=== PATIENT | female | born 1980 | race African-American/Black ===

== ENCOUNTER 2021-09-30 12:06 | Emergency (ER) | payer OTHER, SELFPAY ==
--- NOTE | ~2021-09-30 | CT_ITS ---
EXAMINATION: CT brain wo con EXAM DATE: 09/30/2021 21:36 INDICATION: Right-sided headache. Dizziness. Weakness. TECHNIQUE: Spiral CT of the head was performed without contrast. Axial, coronal and sagittal images were reviewed. The dose-length product (DLP) for this examination was 605.33 mGy-cm. The exposure w as tailored according to patient size, and iterative reconstruction (ASIR) was used as additional dos e reduction technique. There is no prior study for comparison. FINDINGS: There is no acute intraparenchymal hemorrhage. No evidence of intraparenchymal brain mass lesion. No evidence of acute infarction. There is no mass effect or midline shift. The ventricles are normal in size. There are no extra-axial collections. There are no acute calvarial fractures. T he orbits are unremarkable. Soft tissue is unremarkable. The visualized sinuses and mastoid air adriel ls are well aerated. IMPRESSION: 1. Unremarkable head CT examination. Reviewed, dictated and finalized at location A. MOTIVE TIRE TECHNICIAN
[2021-09-30 12:09] VITALS: BP 122/72; PULSE 87; RESP 18; TEMP 36.5; O2SAT 100
[2021-09-30 15:52] VITALS: BP 119/86; PULSE 94; RESP 18; TEMP 37.3; O2SAT 100
[2021-09-30 19:15] VITALS: BP 149/91; PULSE 87; RESP 18; O2SAT 98
--- NOTE | 2021-09-30 20:05 | ED.FEMALEGU ---
HPI - Female Genitourinary General Chief complaint: Vaginal Bleeding Stated complaint: vaginal bleeding/clots Time Seen by Provider: 09/30/21 19:49 Source: patient Mode of arrival: ambulatory Limitations: no limitations History of Present Illness HPI Narrative: Patient is 41 years old -[place] female presented to the ED with vaginal bleeding started 6 days ago with a lot of blood clots. Associated with cramps of the lower abdomen and lower back. Last menstrual. September 19. Patient is 5, para 3, 2. History of rheumatoid arthritis, hypertension, depression, uterine fibroid tumor. Patient doesn't smoke or drink or uses marijuana. Patient is not vaccinated for COVID. Patient denies antiplatelet or anticoagulant medication Related Data Allergies Allergy/AdvReac Type Severity Reaction Status Date / Time ibuprofen Allergy Severe SWELLING Verified 11/06/15 10:37 Chocolate Allergy Severe ITCHING Uncoded 11/06/15 10:37 Review of Systems Review of Systems: CONSTITUTIONAL: Denies fever, chills, or sweats. EYES: Denies visual changes, redness, or discharge. ENT: Denies rhinorrhea, congestion, sore throat, or otalgia. CARDIOVASCULAR: Denies chest pain, palpitations, or edema. RESPIRATORY: Denies cough or dyspnea. GASTROINTESTINAL: Denies abdominal pain, nausea, vomiting, or diarrhea. GENITOURINARY: Denies dysuria or hematuria. SKIN: Denies rash or itching. MUSCULOSKELETAL: Denies back pain, joint pain, or myalgia. NEUROLOGIC: Denies headache, numbness, or weakness. PSYCHIATRIC: Denies anxiety or depression. Exam Narrative: General appearance: Well-developed, well-nourished Skin: Normal color Head: Normocephalic, nontraumatic Eyes: Clear conjunctiva ENT: Oropharynx normal, ears normal, nose normal Neck: Supple, nontender Chest and respiratory: Airway patent, no respiratory distress, no accessory muscle use Heart: Regular rate/rhythm Abdomen: Soft, nontender, no organomegaly, quiet bowel sounds Vascular: Normal peripheral pulses, normal capillary refill. Musculoskeletal: Normal range of motion, nontender back Neurologic: Alert and oriented ?3, PRINT BINDING WORKER is normal as tested, no gross motor deficit : External Female Exam: normal external appearance Speculum Exam - Vagina: vaginal bleeding (A lot of blood clots, large size in the vaginal pouch, with mild active ble) Speculum Exam - Cervix: normal appearance of the cervix Bimanual exam- vagina & uterus: normal bimanual exam and uterine size normal Course Course Emergency Course: Stable Consultations Consultation #1: Dr. ESQUIVEL Date: 09/30/21 Time: 23:29 Vital Signs Vital signs: Vital Signs Temperature 36.5 C 09/30/21 12:09 Pulse Rate 87 09/30/21 12:09 Respiratory Rate 18 09/30/21 12:09 Blood Pressure 122/72 09/30/21 12:09 Pulse Oximetry 100 09/30/21 12:09 Temperature 37.3 C 09/30/21 15:52 Pulse Rate 82 09/30/21 23:15 Respiratory Rate 18 09/30/21 23:15 Blood Pressure 155/101 H 09/30/21 23:15 Pulse Oximetry 100 09/30/21 23:15 MDM - Female Genitourinary MDM Narrative Medical decision making narrative: Patient presents with vaginal bleeding started 2 to 3 days after last menstrual period. Differential diagnosis as below Differential Diagnosis Differential diagnosis: Likely other (Dysfunctional uterine bleeding, , miscarriage, vasculitis) Lab Data Result diagrams: 09/30/21 20:45 09/30/21 20:44 Labs: Lab Results 09/30/21 09/30/21 09/30/21 Range/Units 20:44 20:44 20:45 WBC 6.9 (4.5-10.0) K/mm3 RBC 3.88 L (4.2-5.4) M/mm3 Hgb 10.8 L (12.0-15.0) g/dL Hct 33.5 L (37.0-47.0) % MCV 86.3
[2021-09-30 20:31] VITALS: BP 139/100; BP 142/97; PULSE 76; PULSE 97
[2021-09-30] MEDS: SODIUM CHLORIDE 0.9% IV 1,000 ML 999 ML IV CONT (20:46)
[2021-09-30 20:53] LABS: Basophils Percent Auto 0.6 % (0.2-1.2); Eosinophils Absolute Auto 0.1 K/mm3 (0-0.3); Hematocrit 33.5 % (37.0-47.0); Hemoglobin 10.8 g/dL (12.0-15.0); Immature Granulocyte Absolute 0.01 K/mm3 (0.00-0.031); Immature Granulocyte Percent A 0.1 % (0-0.5); Lymphocytes Absolute Auto 2.06 K/mm3 (0.9-3.2); Lymphocytes Percent Auto 30.1 % (18.3-44.2); Mean Corpuscular HGB Conc 32.2 g/dl (32-36); Mean Corpuscular Hemoglobin 27.8 pg (26-34); Mean Corpuscular Volume 86.3 fl (80-100); Mean Platelet Volume 10.8 fl (7.4-10.4); Monocytes Absolute Auto 1.1 K/mm3 (0.1-0.6); Monocytes Percent Auto 15.3 % (2.6-8.5); Neutrophils Absolute Auto 3.6 K/mm3 (1.3-6.7); Neutrophils Percent Auto 52.9 % (45.5-73.1); Platelet Count Result 284 k/mm3 (150-375); Red Blood Count 3.88 M/mm3 (4.2-5.4); Red Cell Distribution Width 15.9 % (11.5-14.5); White Blood Count 6.9 K/mm3 (4.5-10.0)
[2021-09-30 21:02] LABS: Alanine Aminotransferase 12 U/L (4-35); Albumin Level 3.9 g/dL (3.5-5.1); Alkaline Phosphatase 69 U/L (38-126); Anion Gap 7 mmol/L (8-16); Aspartate Amino Transferase 20 U/L (14-36); Bilirubin,Total 0.2 mg/dL (0.2-1.3); Blood Urea Nitrogen 11 mg/dL (7-17); Calcium 8.8 mg/dL (8.4-10.2); Carbon Dioxide 27 mmol/L (22-30); Chloride 105 mmol/L (98-107); Estimated CRCL calculation 95 ml/min; Estimated Glomerular Filt Rate > 60; Glucose 96 mg/dL (65-110); Potassium 3.9 mmol/L (3.4-5.0); Sodium 139 mmol/L (137-145)
[2021-09-30] MEDS: ONDANSETRON INJ 4 MG/2 ML VIAL IV PUSH (21:04)
[2021-09-30] MEDS: MORPHINE SULFATE (*CRX) 4 MG/ML INJ IV PUSH (21:04)
--- NOTE | 2021-09-30 21:57 | PC.NURSE ---
ert assisted pt changing pad states pad saturated and dripping bright red blood
[2021-09-30 22:00] VITALS: BP 111/70; PULSE 80; RESP 18; O2SAT 100
[2021-09-30 22:10] LABS: Erythrocyte Sedimentation Rate 45 mm/hr (0-20)
[2021-09-30 23:15] VITALS: BP 155/101; PULSE 82; RESP 18; O2SAT 100
== END 2021-09-30 23:45 | disposition home or self-care (01) ==
PROVIDERS: Emergency Provider Emergency Medicine; PCP Physician Assistant
DX: N93.8 Other specified abnormal uterine and vaginal bleeding (principal)
CPT/HCPCS: 36415; 70450; 80053; 81025; 85025; 85652; 86850; 86900; 86901; 96361; 96374; 96375; 99284; A9270; J2270; J2405; J7030

== ENCOUNTER 2022-08-17 17:23 | Emergency (ER) | payer OTHER, SELFPAY ==
--- NOTE | 2022-08-17 18:44 | PC.NURSE ---
LWBS not triaged
== END 2022-08-17 19:08 | disposition left against medical advice (07) ==
LOC: ANHED 19:01
PROVIDERS: PCP Physician Assistant
DX: Z53.21 Procedure and treatment not carried out due to patient leaving prior to being seen by health care provider (principal)
CPT/HCPCS: 99199

== ENCOUNTER 2024-04-11 16:51 | Emergency (ER) | payer OTHER, SELFPAY ==
[2024-04-11 17:16] VITALS: BP 143/73; PULSE 97; RESP 16; TEMP 36.4; O2SAT 99
--- NOTE | 2024-04-11 18:31 | ED.DENTAL ---
HPI - Dental/Oral General Chief complaint: Dental/Oral Stated complaint: facial swelling X6 days Time Seen by Provider: 04/11/24 17:48 Source: patient Mode of arrival: ambulatory Limitations: no limitations History of Present Illness HPI Narrative: Patient is a 44-year-old female who presents the ED with report of mouth ulcers. Patient reports over last 6 days, she has developed diffuse ulcers throughout her mouth, her upper and lower lips, the sides of her mouth, her tongue. She has had significant pain associated with this, trouble eating and drinking due to the pain. She has not been taking anything for pain. Patient has history of rheumatoid arthritis and is on methotrexate and prednisone. She has never had symptoms like this before. Denies fevers, ulcers elsewhere, genital lesions, difficulty breathing/swallowing. Related Data Allergies Allergy/AdvReac Type Severity Reaction Status Date / Time ibuprofen Allergy Severe SWELLING Verified 04/11/24 16:52 Chocolate Allergy Severe ITCHING Uncoded 04/11/24 16:52 Review of Systems Review of Systems: CONSTITUTIONAL: Denies fever, chills, or sweats. ENT: See HPI. RESPIRATORY: Denies dyspnea. GASTROINTESTINAL: Denies abdominal pain, nausea, vomiting All systems reviewed & are unremarkable except as noted in HPI and below Exam Narrative: GENERAL: Uncomfortable appearing, obese with BMI of 33.4, non-toxic, in no acute distress. HEAD: Normocephalic, atraumatic. ENT: Diffuse ulcerations present throughout mouth, diffusely throughout lower inner lip, bilateral buccal regions, inferior and lateral edges of tongue, mildly throughout inner upper lip. No active bleeding. No drainage. No stridor or trismus. RESPIRATORY: Airway patent, respirations nonlabored. CARDIOVASCULAR: Regular rate and rhythm MUSCULOSKELETAL: Moves all extremities. No gross deformities. SKIN: Warm, dry, normal color. NEURO: A&O X3. Speech clear. PSYCHIATRIC: Appropriate mood and affect. Normal interaction. Course Vital Signs Vital signs: Vital Signs Temperature 97.5 F L 04/11/24 17:16 Pulse Rate 97 04/11/24 17:16 Respiratory Rate 16 04/11/24 17:16 Blood Pressure 143/73 H 04/11/24 17:16 Pulse Oximetry 99 04/11/24 17:16 Oxygen Delivery Room Air 04/11/24 17:16 Temperature 98.7 F 04/11/24 21:01 Pulse Rate 86 04/11/24 21:01 Respiratory Rate 18 04/11/24 21:01 Blood Pressure 151/79 H 04/11/24 21:01 Pulse Oximetry 100 04/11/24 21:01 Oxygen Delivery Room Air 04/11/24 17:16 MDM - Dental/Oral MDM Narrative Medical decision making narrative: Patient presented to ED with several day history of diffuse ulcers throughout mouth. Vital signs are stable. Afebrile. No evidence of airway compromise or respiratory distress. Tolerating secretions. She does have history of rheumatoid arthritis and is on methotrexate therapy. She has been on this for several years. She does not take folic acid supplements with this. She does also receive infusions for her RA for the last 1 year. Discussed likelihood of methotrexate adverse effect/medication induced oral ulcerations. differential also includes behcet syndrome, though ulcers are not particularly well defined, more diffuse throughout mucosal regions, no other associated sx's. Laboratory studies were obtained. White blood cell count 3.9. Hemoglobin 11.1. No records to compare to. Normal platelets. Normal coags. Inflammatory markers are mildly elevated. I discussed likely diagnosis and lab studies with patient. Discussed recommendations to utilize Magic mouthwash, saltwater rinses, and have extremely close follow-up with records management manager for further evaluation. I discussed appropriate folic acid supplementation with methotrexate. Advised patient to contact her records management manager in the morning to discuss symptoms. Will also prescribe short course of pain medicine for pain control at home. Patient was given stri
[2024-04-11] MEDS: LIDOCAINE HCL 2% VISC SOLN 15 ML UDC PO (18:38)
[2024-04-11 19:01] LABS: Basophils Percent Auto 0.3 % (0.2-1.2); Eosinophils Absolute Auto 0.1 K/mm3 (0-0.3); Eosinophils Percent Auto 3.6 % (0-4.4); Hematocrit 35.4 % (37.0-47.0); Hemoglobin 11.1 g/dL (12.0-15.0); Immature Granulocyte Absolute 0.02 K/mm3 (0.00-0.031); Immature Granulocyte Percent A 0.5 % (0-0.5); Lymphocytes Absolute Auto 1.67 K/mm3 (0.9-3.2); Lymphocytes Percent Auto 42.6 % (18.3-44.2); Mean Corpuscular HGB Conc 31.4 g/dl (32-36); Mean Corpuscular Hemoglobin 27.6 pg (26-34); Mean Corpuscular Volume 88.1 fl (80-100); Mean Platelet Volume 11.1 fl (7.4-10.4); Platelet Count Result 181 k/mm3 (150-375); Red Blood Count 4.02 M/mm3 (4.2-5.4); Red Cell Distribution Width 15.6 % (11.5-14.5); White Blood Count 3.9 K/mm3 (4.5-10.0)
[2024-04-11 19:07] LABS: Alanine Aminotransferase 22 U/L (6-35); Albumin Level 4.1 g/dL (3.5-5.1); Alkaline Phosphatase 69 U/L (38-126); Anion Gap 9 mmol/L (4-12); Aspartate Amino Transferase 22 U/L (14-36); Bilirubin,Total 0.9 mg/dL (0.2-1.3); Blood Urea Nitrogen 11 mg/dL (7-17); CRP 1.7 mg/dL (<1.0); Calcium 8.6 mg/dL (8.4-10.2); Carbon Dioxide 25 mmol/L (22-30); Chloride 104 mmol/L (98-107); Estimated CRCL calculation 104 ml/min; Estimated Glomerular Filt Rate > 60; Glucose 83 mg/dL (65-110); Potassium 3.6 mmol/L (3.4-5.0); Sodium 138 mmol/L (137-145)
[2024-04-11 19:13] LABS: Atypical Lymphocytes Present; Ovalocytes 1+; Platelet Estimate Adequate (Adequate); Schistocytes None Seen
[2024-04-11 19:51] LABS: Erythrocyte Sedimentation Rate 40 mm/hr (0-20)
[2024-04-11 20:10] LABS: Partial Thromboplastin Time 22.2 Seconds (22.3-36.8); Prothrombin Time 13.7 Seconds (11.1-14.7)
[2024-04-11 21:01] VITALS: BP 151/79; PULSE 86; RESP 18; TEMP 37.1; O2SAT 100
[2024-04-11] MEDS: HYDROcodone/acetaminophen (*CRX) 5-325 MG TABLET 1 TAB PO (21:18)
== END 2024-04-11 21:20 | disposition home or self-care (01) ==
PROVIDERS: Emergency Provider Physician Assistant; PCP Physician Assistant
DX: K12.1 Other forms of stomatitis (principal); M06.9 Rheumatoid arthritis, unspecified
CPT/HCPCS: 36415; 80053; 85025; 85610; 85652; 85730; 86140; 99283; A9270

== ENCOUNTER 2025-06-29 15:57 | Emergency (ER) | payer OTHER, SELFPAY ==
--- NOTE | ~2025-06-29 | US_ITS ---
EXAMINATION: US pelvic complete DATE: 06/29/2025 18:40 INDICATION: Vaginal bleeding. Abdominal pain. TECHNIQUE: Multiple transabdominal sonographic images of the pelvis were obtained. COMPARISON: None. FINDINGS: The uterus measures 13.5 x 12.6 x 7.0 cm. There is no free fluid in the pelvis. The endometrial complex is not visualized. There is a 4.2 cm subserosal fibroid. There is an 8.7 cm intramural fibroid. The right ovary measures 4.2 x 2.5 x 3.1 cm. The left ovary measures 4.4 x 2.1 x 3.9 cm. There is normal vascular flow in the ovaries. IMPRESSION: 1. Uterine fibroids. 2. Endometrial complex not visualized. Reviewed, dictated and finalized at location E.
[2025-06-29 15:59] VITALS: BP 132/91; PULSE 69; RESP 18; TEMP 36.8; O2SAT 100
--- OUTSIDE RECORDS SUMMARY | 2025-06-29 16:00 | XMS_ITS | Encounter Summary ---
Author Organization [facility] Address [address] [facility] [facility] [place] [address] Care Team Providers Care Radar Signal Processing Engineer Name Role Phone Andre Carver Primary Care Provider + Reason for Visit * Reason Onset Date Comments Follow-up 06/08/2025 Encounter Details Date Type Department Care Team (Late st Contact Info) Description 06/08/2025 Telephone [facility] - Rheumatology [address] [facility] [place] [address] Grady Machado MD [address] [facility] [place] [address] Follow-up Social History Tobacco Use Types Packs/Day Years Used Date Smoking Tobacco: Never Smokeless Tobacco: Never Alcohol Use Standard Drinks/Week Comments No 0 (1 standard drink = 0.6 oz pur e alcohol) PHQ-2 Answer Date Recorded Patient Health Questionnaire-2 Score 0 03/06/2025 Comments No Sex and Gender Information Value Date Recorded Sex Assigned at Not on file Legal Sex Female 1:07 PM CDT Gender Identity Not on file Sexual Orientation Not on file documented as of this encounter Functional Status * Is person deaf or have serious hearing difficulty? Answer Date of Assessment Author No 03/01/2018 7:51 AM CDT Shelly Beard RN * Is person blind or have serious difficulty seeing? Answer Date of Assessment Author No 03/01/2018 7:51 AM CDT Shelly Beard RN * Does person have serious difficulty walking/climbing stairs? Answer Date of Assessment Author Yes 03/01/2018 7:51 AM CDT Shelly Beard RN * Does person have difficulty dressing/bathing? Answer Date of Assessment Author Yes 03/01/2018 7:51 AM CDT Shelly Beard RN * Does person have difficulty doing errands alone? Answer Date of Assessment Author Yes 03/01/2018 7:51 AM CDT Shelly Beard RN documented as of this encounter Mental Status * Does person have difficulty concentrating/remembering/making decisions? Answer Entry Date Author Yes 03/01/2018 7:51 AM CDT Shelly Beard RN documented in this encounter Miscellaneous Notes * Telephone Encounter - Janae Walls RN - 06/08/2025 11:26 AM CDT Attempt 2: Patient Gave [facility] to fax labs Phone#:[phone] Address: [address] [place] [address] Fax#: [phone] (or [phone]) documented in this encounter Plan of Treatment Upcoming Encounters Date Type Department Care Team (Late st Contact Info) Description 07/06/2025 1:00 PM CDT Hospital Encounter [facility] [address] [place] [address] Anthony Salvador MD [address] [facility] [place] [address] 07/17/2025 2:30 PM CDT Procedure visit [facility] - RUBBER STAMP DIE INSPECTOR [address] [facility] [address] [place] [address] 07/17/2025 3:00 PM CDT Office Visit [facility] - RUBBER STAMP DIE INSPECTOR [address] [facility] [address] [place] [phone] Gideon Hernandez MD [address] [place] [address] 07/17/2025 3:30 PM CDT Office Visit [facility] - Ophthalmology [address] [facility] [place] [phone] Harsha Inman, CONRAD [address] [place] [address] 08/03/2025 1:00 PM MAIN LINE STATION ENGINEER Appointment [facility] [address] [place] [address] 08/08/2025 10:30 AM MAIN LINE STATION ENGINEER Office Visit [facility] - Rheumatology [address] [facility], [facility] [place] [address] Grady Machado MD [address] [facility] [address] documented as of this encounter Visit Diagnoses Not on filedocumented in this encounter Care Teams Radar Signal Processing Engineer Relationship Specialty [place] [address] [place] [phone] PCP - General Physician Med Peds 02/28/18 documented as of this encounter
--- OUTSIDE RECORDS SUMMARY | 2025-06-29 16:00 | XMS_ITS | Encounter Summary ---
Author Organization [facility] Address [address] [place] [address] Care Team Providers Care Silk Weaver Name Role Phone Andre Carver Primary Care Provider + Reason for Referral * Consultation (Urgent) - Open Specialty Diagnoses / Procedures Referred By Contac t Referred To Contact Obstetrics and Gynecology Diagnoses Abnormal vaginal bleeding Rene Van MD [address] [place] [address] Phone: tel: fax: Referral ID Status Reason Start Date Expiration Date V isits Requested Visits Authorized [id number] Open Specialty Services Required 06/29/2025 06/29/2026 1 1 Encounter Details Date Type Department Care Team (Late st Contact Info) Description 06/29/2025 Orders Only [facility] - Rheumatology [address] [facility] [place] [address] Grady Machado MD [address] [facility] [place] [address] Abnormal vaginal bleeding ; Rheumatoid arthritis involving multiple sites with positive rheumatoid factor (HCC) Social History Tobacco Use Types Packs/Day Years [...] of Assessment Author Yes 03/01/2018 7:51 AM JHONYT Shelly Beard RN * Does person have difficulty dressing/bathing? Answer Date of Assessment Author Yes 03/01/2018 7:51 AM CDT Shelly Beard RN * Does person have difficulty doing errands alone? Answer Date of Assessment Author Yes 03/01/2018 7:51 AM Shelly Blum RN documented as of this encounter Mental Status * Does person have difficulty concentrating/remembering/making decisions? Answer Entry Date Author Yes 03/01/2018 7:51 AM Shelly Blum RN documented in this encounter Plan of Treatment Upcoming Encounters Date Type Department Care Team (Late st Contact Info) Description 07/06/2025 1:00 PM CDT Hospital Encounter [facility] [address] [place] [address] Anthony Salvador MD [address] [facility] [address] 07/17/2025 2:30 PM CDT Procedure visit [facility] - CORPORATE PLANNING MANAGER [address] [facility] [address] [place] [address] 07/17/2025 3:00 PM CDT Office Visit [facility] - CORPORATE PLANNING MANAGER [address] [facility] [address] [place] [address] Gideon Hernandez MD [address] [facility] [address] [place] [address] 07/17/2025 3:30 PM CDT Office Visit [facility] - Ophthalmology [address] [facility] [place] [address] Harsha Inman, CONRAD [address] [place] [address] 08/03/2025 1:00 PM LABEL PRINTER Appointment [facility] [address] [place] [address] 08/08/2025 10:30 AM LABEL PRINTER Office Visit [facility] - Rheumatology [address] [facility], [place] [phone] Grady Machado MD [address] [facility] [place] [address] Scheduled Referrals Name Type Priority Associated Diagnoses Order Schedule AMB REFERRAL TO OB-FOREST NURSERY WORKER Outpatient Referral Routine Abnormal vaginal bleeding 1 Occurrences starting 06/29/2025 until 06/29/2026 documented as of this encounter Visit Diagnoses Diagnosis Abnormal vaginal bleeding- Primary Other specified noninflammatory disorder of vagina Rheumatoid arthritis involving multiple sites with positive rheumatoid factor (HCC) documented in this encounter Care Teams Silk Weaver Relationship Specialty Start Date End Date Andre Carver PA [address] [place] [phone] PCP - General Physician Creative Services Writer 02/28/18 documented as of this encounter
--- OUTSIDE RECORDS SUMMARY | 2025-06-29 16:00 | XMS_ITS | Encounter Summary ---
Author Organization [facility] Address [address] [place] [address] Care Team Providers Care Landman Name Role Phone Andre Carver Primary Care Provider + Reason for Visit * Reason Onset Date Comments Appointment 06/26/2025 Encounter Details Date Type Department Care Team (Late st Contact Info) Description 06/26/2025 Telephone [facility] [address] [place] [address] Kasia Cornelius RN Appointment Social History Tobacco Use Types Packs/Day Years [...] of Assessment Author No 03/01/2018 7:51 AM Shelly Blum RN * Is person blind or have serious difficulty seeing? Answer Date of Assessment Author No 03/01/2018 7:51 AM JHONYT Shelly Beard RN [...] Shelly Beard RN documented in this encounter Plan of Treatment Upcoming Encounters Date Type Department Care Team (Late st Contact Info) Description 07/06/2025 1:00 PM CDT Hospital Encounter [facility] [address] [place] [address] Anthony Salvador MD [address] [place] [phone] 07/17/2025 2:30 PM CDT [facility] - TIMBER FELLER [address] [facility] [address] [place] [address] 07/17/2025 3:00 PM CDT Office Visit [facility] - TIMBER FELLER [address] [facility] [address] [place] [address] Gideon Hernandez MD [address] [facility] [address] [place] [address] 07/17/2025 3:30 PM CDT [facility] - Ophthalmology [facility] [facility], [place] [phone] Harsha Inman OD [address] [place] [phone] 08/03/2025 1:00 PM SUPERVISOR MICROFILM DUPLICATING UNIT Appointment [facility] [address] [place] [address] 08/08/2025 10:30 AM SUPERVISOR MICROFILM DUPLICATING UNIT Office Visit [facility] - Rheumatology [address] [facility] [place] [address] Grady Machado MD [address] [facility] [place] [address] documented as of this encounter Visit Diagnoses Not on filedocumented in this encounter Care Teams Landman Relationship Specialty [place] [address] [place] [phone] PCP - General Physician Hair Baler 02/28/18 documented as of this encounter
--- OUTSIDE RECORDS SUMMARY | 2025-06-29 16:00 | XMS_ITS | Encounter Summary ---
Author Organization [facility] Address [address] [facility] [place] [address] Care Team Providers Care Assistant Track Coach Name Role Phone Andre Carver Primary Care Provider + Reason for Visit * Reason Onset Date Comments Vaginal Bleeding 06/27/2025 Returned Call 06/27/2025 Encounter Details Date Type Department Care Team (Late st Contact Info) Description 06/27/2025 Telephone [facility] - PUBLIC WORKS TECHNICIAN [address] [facility] [address] [place] [address] Domo Dowell MD [address] [place] [address] Vaginal Bleeding; Returned Call Social History Tobacco Use Types Packs/Day Years [...] Entry Date Author Yes 03/01/2018 7:51 AM JHONYT Shelly Beard RN documented in this encounter Miscellaneous Notes * Telephone Encounter - Jessica Rose RN - 06/29/2025 12:43 PM CDT RN returned patient's call. Her appointment is moved up to 07/17. She states that she has felt light headed and dizzy and very weak.RN advised she go to the ER for evaluation. Patient is agreeable to plan and will go to ER close to her home. * Telephone Encounter - Taisha Looney - 06/29/2025 10:44 AM CDT Pt is retuning nurse call regarding heavy bleeding Instructed her to listen to vmail for further updates * Telephone Encounter - Aida Castillo RN - 06/27/2025 3:08 PM CDT Pt scheduled with Dr Hernandez 08/07/25. Pt has hx of fibroids, last US 2021. RN spoke to Dr Hernandez and new order for US before visit. RN called pt to offer sooner appt with US. No answer, left VM to return call to RN. * Telephone Encounter - Vanessa Shahid RN - 06/27/2025 10:32 AM CDT Pt has referral for General OBGYN for heavy bleeding. Will forward to front of house manager to please scheduleNEW with any auriculotherapist. * Telephone Encounter - Taisha Looney - 06/27/2025 9:53 AM CDT PT HAS A REF FOR EXCESSIVE BLEEDING PT STATED GOES AWAY FOR 1 DAY RETURNS VERY HEAVY MAY LEAVE MESSAGES documented in this encounter Plan of Treatment Upcoming Encounters Date Type Department Care Team (Late st Contact Info) Description 07/06/2025 1:00 PM CDT Hospital Encounter [facility] [address] [place] [address] Anthony Salvador MD [address] [place] [address] [place] [address] 07/17/2025 2:30 PM CDT Procedure visit [facility] - PUBLIC WORKS TECHNICIAN [address] [facility] [address] [place] [address] 07/17/2025 3:00 PM CDT Office Visit [facility] - PUBLIC WORKS TECHNICIAN [address] [facility] [address] [place] [address] Gideon Hernandez MD [address] [facility] [address] [place] [address] 07/17/2025 3:30 PM CDT Office Visit [facility] - Ophthalmology [address] [facility], [place] [address] Harsha Inman, CONRAD [address] [place] [address] 08/03/2025 1:00 PM VETERINARY EPIDEMIOLOGIST Appointment [facility] [address] [place] [address] 08/08/2025 10:30 AM VETERINARY EPIDEMIOLOGIST Office Visit [facility] - Rheumatology [address] [facility] [place] [address] Grady Machado MD [address] [facility] [place] [address] documented as of this encounter Visit Diagnoses Not on filedocumented in this encounter Care Teams Assistant Track Coach Relationship Specialty Start Date End Date Andre Carver PA [address] [place] [phone] PCP - General Physician Sanding Line Operator 02/28/18 documented as of this encounter
--- OUTSIDE RECORDS SUMMARY | 2025-06-29 16:00 | XMS_ITS | Encounter Summary ---
Author Organization [facility] Address [address] [place] [address] Care Team Providers Care Maintenance Repairman Name Role Phone Andre Carver Primary Care Provider + Encounter Details Date Type Department Care Team (Late st Contact Info) Description 06/22/2025 Orders Only [facility] - Rheumatology [address] [facility] [place] [address] Suni Stephens MD [address] [place] [address] Rheumatoid arthritis involving multiple sites with positive rheumatoid factor (HCC); 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 therapy (HCC); Therapeutic drug monitoring Social History Tobacco Use Types Packs/Day Years [...] Description 07/06/2025 1:00 PM CDT Hospital Encounter [facility] [address] [place] [address] Anthony Salvador MD [facility] [place] [phone] 07/17/2025 2:30 PM CDT Procedure visit [facility] - STUDENT ASSISTANCE COUNSELOR [address] [facility] [address] [place] [phone] 07/17/2025 3:00 PM CDT Office Visit [facility] - STUDENT ASSISTANCE COUNSELOR [address] [facility] [address] [place] [phone] Gideon Hernandez MD [address] [facility] [address] [place] [address] 07/17/2025 3:30 PM CDT Office Visit [facility] - Ophthalmology [address] [facility], [place] [id number] Harsha Inman OD [address] [place] [phone] 08/03/2025 1:00 PM [employer] Appointment [facility] [address] [place] [address] 08/08/2025 10:30 AM [employer] Office Visit [facility] - Rheumatology [address] [facility], [facility] [place] [address] Grady Machado MD [address] [facility] [address] documented as of this encounter Visit Diagnoses Diagnosis Rheumatoid arthritis involving multiple sites with positive rheumatoid factor (HCC) 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 therapy (HCC) Therapeutic drug monitoring Encounter for therapeutic drug monitoring documented in this encounter Care Teams Maintenance Repairman Relationship Specialty Start Date End Date Andre Carver PA [address] [place] [address] PCP - General Physician Drilling Supervisor 02/28/18 documented as of this encounter
--- OUTSIDE RECORDS SUMMARY | 2025-06-29 16:00 | XMS_ITS | Data Portability ---
Author Organization [place] [facility] [employer], Main Office Address [address] [place] [address] Care Team Providers Care Highway Technician Name Role Phone KATY DURHAM Primary Care Provider KATY DURHAM Referring Provider Assessment No assessment recorded. Plan of Treatment Reminders Order Date Submit Date Provider Last Modified By Organization Details Last Modified Time Details Appointments None recorded. Lab glycohemogl obin, total, blood 2023 024 [email or web address] 2 [facility] (Lab), [address] [place], [address], 4 09:51:21 TSH, serum or plasma 2023 024 [email or web address] 2 [facility] (Lab), [address] [place], [address], 4 09:51:21 CBC w/ auto diff 2023 024 [email or web address] 2 [facility] (Lab), [address] [place], [address], 4 09:51:20 ferritin, serum or plasma 2023 024 [email or web address] 2 [facility] (Lab), [address] [place], [address], 4 09:51:20 iron + total iron-bindin g capacity (TIBC), serum 2023 024 [email or web address] 2 [facility] (Lab), [address] [place], [address], 4 09:51:21 glycohemogl obin, total, blood 2023 024 [email or web address] 2 [facility] (Lab), [address] [place], [address], 4 09:12:09 Referral None recorded. Procedures None recorded. Surgeries None recorded. Imaging MAMMO, screening, digital, bilateral - Please call pt to schedule 2023 024 [email or web address] [facility] (Radiology), [address] [place], [address], 5 10:59:12 Medication Orders nortriptyli ne 10 mg capsule 2023 024 [id number] [address] [place], [address], 4 15:53:13 buspirone 10 mg tablet 2023 024 [id number], [address] [place], [address], 4 15:58:06 dicloxacill in 500 [address] capsule [address] [facility]/Pharmacy #[id number], [address] [place], [address], 5 14:16:02 venlafaxine ER 37.5 mg capsule,ext ended release 24 hr 2023 024 [facility]armacy #[id number], [address] [place], [address], 4 15:56:05 venlafaxine ER 75 mg capsule,ext ended release 24 hr 2023 024 [id number], [address], [place], [address], 4 15:56:05 prednisone 10 mg tablet 2023 024 [id number], [address], [place], [address], 4 12:48:56 cyclobenzap rine 10 mg tablet 2023 024 [id number] [address] [place], [address], 4 12:50:52 losartan 100 mg tablet 2023 024 [id number] [place], [address], 4 15:01:51 amlodipine 5 mg tablet 2023 024 [id number], [address] [place], [address], 4 15:05:06 hydrocodone 10 mg-acetamin ophen 325 mg tablet 2023 024 [id number] [address] [place], [address], 4 15:07:24 omeprazole 20 mg capsule,del ayed release 2023 024 [id number], [address] [place], [address], 4 13:11:52 Depo-Medrol 80 mg/mL suspension for injection 2023 024 [email or web address] Not available 5 14:15:58 methotrexat e sodium 2.5 mg tablet 2023 024 [id number], [address], [place], [address], 4 12:31:13 hydrocodone 10 mg-acetamin ophen 325 mg tablet 2023 024 [id number], [address], [place], [address], 4 13:14:05 losartan 100 mg tablet 2023 024 [id number], [address], [place], [address], 4 17:31:57 prednisone 10 mg tablet 2023 024 [id number], [address], [place], [address], 4 12:31:27 hydrocodone 10 mg-acetamin ophen 325 mg tablet 2023 024 [id number], [address], [place], [address], 4 17:38:20 Patient TargetsNo targets recorded. Patient Instructions Encounter Date Encounter Id Patient Instructions Last Modified By Organization Details Last Modified Time 05/26/2024 [id number] recheck BP at home if diastolic 90 or over , call us , take medicine every day , put reminders out [email or web address] Not available 05/30/2024 08:53:40 09/07/2024 [id number] go to you tube: [facility] for sleep . Counseled : no si/hi [email or web address] Not available 09/11/2024 12:25:26 Reason for Referral None Reported. Results Created Date Observation Date Name Description Value Unit Range Abnormal Flag Note LastModifiedBy Organization Detail LastModifiedTime 09/10/20 24 09/10/2024 CT, angio gram, head, w/ contr ast No observ ation record ed. [email or web address] [facility] [address] [place], [address], 09/15/2024 09:30:39 09/10/20 24 09/10/2024 XR, lumba r spine No observ ation record ed. [facility] [address] [place], [address], 09/15/2024 09:37:13 09/10/20 24 09/10/2024 XR, hip + pelvi s, bilat eral, 2 view No observ ation record ed. [facility] [address] [place], [address], 09/15/2024 09:37:37 Result Notes None recorded. Problems Name Problem SNOMED Code Status Onset Date Resolution Date Notes Provider Name and Address Organization Details Recorded Time Hand pain 58284418 Active 2021 Not Available [facility] 3 19:49:50 Carpal tunnel syndrome 80332705 Active 2021 Not Available [facility] 3 19:49:50 Rheumatoid arthritis 92477235 Active 2021 Not Available [facility] 3 19:49:50 Depressive disorder 08420372 Active 2022 ONESIMO Esquivel [address], [place], [address] , [facility] [employer] 3 15:41:09 Insomnia 353453359 Active 2022 ONESIMO Esquivel [address], [address], [place], [address] , [facility] [employer] [facility] [employer] 3 15:44:06 Obese 235807636 Active 2022 ONESIMO Esquivel [address], [address], [place], [address] , [facility] [employer] [facility] 3 15:52:28 Bronchitis 86755118 Active 2022 ONESIMO Esquivel [address], [address], [place], [address] , [facility] 3 15:00:26 Gastroesophag eal reflux disease 904743378 Active 2022 ONESIMO Esquivel [address], [address], [place], [address] , [facility] 3 15:02:30 Cough 40143853 Active 2022 Patricia Moura MD [address], [address], [place], [address] , [facility] 3 12:03:58 Essential hypertension 96162067 Active 2023 ONESIMO Esquivel [address], [address], [place], [address] , [facility] 4 17:31:28 Upper respiratory infection 66787203 Active 2023 ONESIMO Esquivel [address], [place], [address] , [facility] 4 12:41:53 Anemia 738171209 Active 2023 ONESIMO Esquivel [address], [address], [place], [address] , [facility] 4 16:43:14 Sleep apnea 96440039 Active 2023 Eugenia Matson RN [facility] [place], [place] - [facility] 4 11:46:42 Acute mastitis 19073287 Active 2023 ONESIMO Esquivel [address], [address], [place], [address] , [facility] 4 16:02:17 Screening mammography Active 2023 ONESIMO Esquivel [address], [address], [place], [address] , [facility] 4 16:03:46 Primary insomnia 7197190 Active 2024 DIAN [address], [place], [address] , [facility] [employer] 5 14:21:53 Notes:Medical History: Depre ssion/Anxiety Left tinnitus Rhinitis Eosinophils 90/uL IgE 6 IU/mL Alpha-1 antitrypsin PiMM 140 mg% Obesity Hypertension Vit D deficiency RA on prednisone 10 mg daily CTS Problem Notes None recorded. Medical Equipment None Reported. Allergies Allergen ID Allergen Name Allergen Category Reaction Reaction Severity Criticality Documentation Date Start Date Code Code System Note Provider Name and Address Organization Details Recorded Time 29077 ibuprofen medicatio n Not available Not available Not available 11/25/2022 5640 RxNorm Not Available [facility] 3 19:50:50 11665 shrimp allergeni c extract food Not available Not available Not available 06/03/2023 61029 2 RxNorm KEENAN Ye, [facility] [employer] 3 15:27:15 99671 trazodone medicatio n hallucina tions Not available Not available 09/07/2024 58648 RxNorm Anca Vigil RN null, [facility] [employer] 4 15:30:25 Medications Name Sig Start Date Stop Date Status Note LastModified by Organization Details LastModified Time compound drug active Not Available Not Available Not Available losartan 50 mg tablet TAKE 1 TABLET BY MOUTH EVERY DAY IN THE MORNING 11/15 completed Not Available Not Available Not Available cyclobenz aprine 10 mg tablet TAKE 1 TABLET BY MOUTH EVERY DAY AT BEDTIME NEEDED active Not Available Not Available No t Available medroxypr ogesteron e 10 mg tablet TAKE 1 TABLET BY MOUTH EVERY DAY 2024 active Not Available Not Available Not Avai lable dicloxaci llin 500 mg capsule Take 1 capsule every 6 hours by oral route with meal(s) for 10 days. 04/18 completed Not Available Not Available Not Available [employer] Extra Strength 500 mg tablet 08/22 completed Not Available Not Available Not Available promethaz ine-DM 6.25 mg-15 mg/5 mL oral syrup TAKE 5 ML BY MOUTH EVERY 4 HOURS FOR 10 DAYS. 11/15 completed Not Available Not Available Not Available venlafaxi ne ER 37.5 mg capsule,e xtended release 24 hr Take 1 capsule every day by oral route in the evening for 7 days. 2023 active Not Available Not Available Not Avai lable prednison e 10 mg tablet TAKE 1 TABLET BY MOUTH EVERY DAY IN THE MORNING active Not Available Not Available No t Available venlafaxi ne ER 75 mg capsule,e xtended release 24 hr TAKE 1 CAPSULE BY MOUTH EVERY DAY in the evening active Not Available Not Available No t Available doxycycli ne hyclate 100 mg capsule Take 1 capsule twice a day by oral route for 7 days. 05/26 completed Not Available Not Available Not Available albuterol sulfate 2.5 mg/3 mL (0.083 %) solution for nebulizat ion INHALE THE CONTENTS OF 1 VIAL (3 ML) VIA NEBULIZA TION 3 TIMES A DAY FOR 30 DAYS active Not Available Not Available No t Available citalopra m 40 mg tablet TAKE 1 TABLET BY MOUTH EVERY DAY IN THE EVENING active Not Available Not Available No t Available trazodone 50 mg tablet TAKE 1 TABLET BY MOUTH EVERYDAY AT BEDTIME FOR 30 DAYS 08/22 completed Not Available Not Available Not Available azithromy carlos 250 mg tablet TAKE 2 TABLETS BY MOUTH TODAY, THEN TAKE 1 TABLET DAILY FOR 4 DAYS DIRECTED 04/18 completed Not Available Not Available Not Available fluconazo le 150 mg tablet TAKE ONE TABLET BY MOUTH ON DAY ONE AND ONE TABLET 72 HOURS LATER 11/15 completed Not Available Not Available Not Available valacyclo vir 1 gram tablet TAKE 1 TABLET BY MOUTH EVERY 12 HOURS FOR 7 DAYS 04/18 completed Not Available Not Available Not Available hydrocodo ne 5 mg-acetam inophen 325 mg tablet TAKE ONE TABLET BY MOUTH EVERY 6 HOURS NEEDED FOR PAIN-(MO DERATE 4-6 ON PAIN SCALE) 11/15 completed Not Available Not Available Not Available meloxicam 15 mg tablet TAKE 1 TABLET BY MOUTH EVERY DAY active Not Available Not Available No t Available promethaz ine 12.5 mg tablet TAKE 1 TABLET BY MOUTH TWICE A DAY 11/15 completed Not Available Not Available Not Available prednison e 20 mg tablet 2 po qAM with food x 5 days 11/15 completed Not Available Not Available Not Available prednison e 5 mg tablet TAKE 1 (ONE) TABLET BY MOUTH ONCE DAILY FOR 28 DAYS (START AFTER COMPLETI NG 10 MG TABS) 05/26 completed Not Available Not Available Not Available venlafaxi ne ER 150 mg capsule,e xtended release 24 hr TAKE 1 CAPSULE BY MOUTH EVERY DAY IN THE EVENING. BEGIN AFTER DONE WITH 75 MG DOSE 04/18 completed Not Available Not Available Not Available metronida zole 500 mg tablet TAKE 1 TABLET BY MOUTH 2 TIMES A DAY. *NO ALCOHOL UNTIL 72 HOURS AFTER LAST PILL* 04/18 completed Not Available Not Available Not Available amlodipin e 5 mg tablet TAKE 1 TABLET BY MOUTH EVERY DAY IN THE MORNING active Not Available Not Available No t Available ciproflox acin 500 mg tablet TAKE 1 TABLET BY MOUTH EVERY 12 HOURS FOR 10 DAYS 11/15 completed Not Available Not Available Not Available hydrocodo ne 10 mg-acetam inophen 325 mg tablet TAKE 1 TABLET BY MOUTH TWICE A DAY ONLY NEEDED. active Not Available Not Available No t Available doxycycli ne monohydra te 100 mg tablet TAKE 1 TABLET BY MOUTH TWICE A DAY 11/15 completed Not Available Not Available Not Available leflunomi de 20 mg tablet 04/18 completed Not Available Not Available Not Available tramadol 50 mg tablet TAKE 1 TABLET BY MOUTH EVERY 8 HOURS NEEDED 06/03 completed Not Available Not Available Not Available Depo-Medr ol 80 mg/mL suspensio n for injection Take 1 mL by injectio n route. 04/18 completed Not Available Not Available Not Available Diphenhis t 25 mg tablet 04/18 completed Not Available Not Available Not Available methotrex ate sodium 2.5 mg tablet TAKE 9 TABLETS BY MOUTH EVERY WEDNESDAY WITH ENBREL active Not Available Not Available No t Available trazodone 100 mg tablet TAKE 1/2 TABLET BY MOUTH EVERY DAY AT BEDTIME NEEDED 09/07 completed Not Available Not Available Not Available Kenalog 10 mg/mL suspensio n for injection In office injectio n administ ered by the provider 08/22 completed [facility]: [phone] 4-20 Not Available Not Available Not Available benzonata te 100 mg capsule 08/22 completed Not Available Not Available Not Available hydrocodo ne 7.5 mg-acetam inophen 325 mg tablet TAKE 1 TABLET BY MOUTH TWICE DAILY NEEDED FOR 30 DAYS 08/22 completed Not Available Not Available Not Available prednison e 2.5 mg tablet 04/18 completed Not Available Not Available Not Available cephalexi n 500 mg capsule TAKE 1 CAPSULE BY MOUTH TWICE A DAY 04/18 completed Not Available Not Available Not Available nortripty line 10 mg capsule TAKE 1-2 CAPSULES BY MOUTH ONCE DAILY AT BEDTIME NEEDED active Not Available Not Available No t Available ferrous sulfate 325 mg (65 mg iron) tablet TAKE 1 TABLET BY MOUTH EVERY DAY WITH MEALS active Not Available Not Available No t Available nystatin 100,000 unit/gram topical cream APPLY TO AFFECTED AREA TWICE A DAY 04/18 completed Not Available Not Available Not Available ranitidin e 150 mg tablet 08/22 completed Not Available Not Available Not Available buspirone 10 mg tablet TAKE 1 TABLET BY MOUTH TWICE A DAY AFTER FOOD 2024 active Not Available Not Available Not Avai lable lidocaine HCl 2 % mucosal solution SWISH AND SPIT 15 ML BY MOUTH EVERY 6-8 HOURS NEEDED 04/18 completed Not Available Not Available Not Available omeprazol e 20 mg capsule,d elayed release TAKE 1 CAPSULE BY MOUTH EVERY DAY BEFORE MEALS 2023 active Not Available Not Available Not Avai lable folic acid 1 mg tablet TAKE 1 TABLET BY MOUTH EVERY DAY active Not Available Not Available No t Available polyethyl jonatan glycol 3350 17 gram/dose oral powder MIX 17 GRAMS IN WATER AND TAKE BY MOUTH ONCE DAILY 08/22 completed Not Available Not Available Not Available albuterol sulfate HFA 90 mcg/actua tion aerosol inhaler INHALE 2 PUFFS BY MOUTH 3 TIMES A DAY NEEDED FOR 30 DAYS. active Not Available Not Available No t Available ferrous sulfate 325 mg (65 mg iron) tablet,de layed release Take 1 tablet every day by oral route with meal(s) for 30 days. 05/26 completed Not Available Not Available Not Available Vitamin D2 1,250 mcg (50,000 unit) capsule active needs refill Not Available Not Available Not Available norethind adonay (contrace ptive) 0.35 mg tablet TAKE 1 TABLET BY MOUTH EVERY DAY 04/18 completed Not Available Not Available Not Available losartan 100 mg tablet TAKE 1 TABLET BY MOUTH EVERY DAY IN THE MORNING active Not Available Not Available No t Available doxycycli ne hyclate 100 mg tablet TAKE 1 TABLET BY MOUTH TWICE A DAY 08/22 completed Not Available Not Available Not Available naproxen 500 mg tablet active Not Available Not Available Not Available amoxicill in 875 mg-potass ium clavulana te 125 mg tablet 08/22 completed Not Available Not Available Not Available nabumeton e 500 mg tablet 08/22 completed Not Available Not Available Not Available azithromy carlos 500 mg tablet TAKE 2 TABLETS BY MOUTH ONCE 04/18 completed Not Available Not Available Not Available bupropion HCl XL 300 mg 24 hr tablet, extended release Take 1 tablet every day by oral route in the morning for 30 days. 09/11 completed Formular y change Not Available Not Available Not Available bupropion HCl XL 150 mg 24 hr tablet, extended release Take 1 tablet every day by oral route in the morning for 3 days. 09/11 completed formular y change Not Available Not Available Not Available tinidazol e 500 mg tablet TAKE 4 TABS BY MOUTH ONCE. NO ALCOHOL WITHIN 48 HOURS OF MEDICATI ON. *URGENTC ARE DOESNT DO PA* active Not Available Not Available No t Available nitrofura ntoin monohydra te/macroc rystals 100 mg capsule TAKE 1 CAPSULE BY MOUTH TWICE A DAY 04/29 completed Not Available Not Available Not Available duloxetin e 30 mg capsule,d elayed release TAKE 1 CAPSULE BY MOUTH EVERY DAY 11/15 completed Not Available Not Available Not Available duloxetin e 60 mg capsule,d elayed release TAKE 1 CAPSULE BY MOUTH EVERY DAY active Not Available Not Available No t Available lidocaine (PF) 10 mg/mL (1 %) injection solution In office injectio n administ ered by the provider 08/22 completed [facility]: 0409-427 03-13 Not Available Not Available Not Available Humira Pen 40 mg/0.8 mL subcutane ous kit INJECT 0.8 ML under the skin EVERY TWO WEEKS active Not Available Not Available No t Available Enbrel SureClick 50 mg/mL (1 mL) subcutane ous pen injector ADMINIST ER 1 ML UNDER THE SKIN EVERY 7 DAYS 04/18 completed Not Available Not Available Not Available Symbicort 160 mcg-4.5 mcg/actua tion HFA aerosol inhaler INHALE 2 PUFFS INTO THE LUNGS TWICE A DAY FOR 30 DAYS. RINSE MOUTH AFTER 2ND PUFF active Not Available Not Available No t Available venlafaxi ne ER 150 mg tablet,ex tended release 24 hr active Not Available Not Available Not Available Vitals Date Recorded Body height Body mass index (BMI) Body weight Body temperature Heart rate Oxygen saturation Oxygen saturation in Arterial blood by Pulse oximetry Provider Name and Address Organization Details Last Updated DateTime 4 167.64 cm 34.4 kg/m2 45523.1 7 g 97.5 [degF] 78 /min 99 % 99 % Bella Clark MA [facility] [employer] [facility] 4 17:17:54 Date Recorded Body height Body mass index (BMI) Body weight Body temperature Heart rate Oxygen saturation Oxygen saturation in Arterial blood by Pulse oximetry Respiratory rate Systolic And Diastolic Provider Name and Address Organization Details Last Updated DateTime 4 167.64 cm 34.9 kg/m2 89696.9 5 g 97.7 [degF] 67 /min 98 % 98 % 16 /min 126/86 mm[Hg] Jamaica Medina RN [facility] [employer] [facility] 4 13:03:40 Date Recorded Body height Body mass index (BMI) Body weight Body temperature Heart rate Respiratory rate Oxygen saturation Oxygen saturation in Arterial blood by Pulse oximetry Systolic And Diastolic Provider Name and Address Organization Details Last Updated DateTime 4 167.64 cm 35.7 kg/m2 044341. 61 g 98.2 [degF] 70 /min 20 /min 98 % 98 % 138/90 mm[Hg] Cordell Norris [facility] [employer] [facility] 4 14:58:42 Date Recorded Body height Body mass index (BMI) Body weight Body temperature Oxygen saturation Oxygen saturation in Arterial blood by Pulse oximetry Heart rate Respiratory rate Systolic And Diastolic Provider Name and Address Organization Details Last Updated DateTime 4 167.64 cm 34.5 kg/m2 14412.7 7 g 98.7 [degF] 98 % 98 % 71 /min 16 /min 160/104 mm[Hg] Anca Vigil RN [facility] [email or web address] 4 12:33:31 Date Recorded Body height Body mass index (BMI) Body weight Body temperature Heart rate Oxygen saturation Oxygen saturation in Arterial blood by Pulse oximetry Systolic And Diastolic Provider Name and Address Organization Details Last Updated DateTime 4 167.64 cm 35.3 kg/m2 58344.7 3 g 97.9 [degF] 76 /min 98 % 98 % 168/100 mm[Hg] Anca Vigil RN [facility] [email or web address] 4 15:33:17 Social History Question Answer Notes LastModified by [employer] Details LastModified Time Tobacco Smoking Status Never Smoker Anca Vigil RN [facility] [employer] 09/07/2024 15:30:45 What Is Your Level Of Caffeine Consumption? None Information not available 06/03/2023 Do You Use Your Seat Belt Or Car Seat Routinely? Yes Information not available 06/03/2023 Do You Participate In Social e(ye)BRAIN? No Information not available 06/03/2023 Sex: Unknown Functional Status Question Answer Note LastModified by [employer] Details LastModified Time Do you use any illicit or recreational drugs? No [email or web address] Information not available 06/03/2023 Do you or have you ever used any other forms of tobacco or nicotine? No [id number] Information not available 11/25/2022 What is your level of alcohol consumption? None [email or web address] Information not available 06/03/2023 Mental Status Question Answer Note LastModified by Organization D etails LastModified Time Do you feel stressed (tense, restless, nervous, or anxious, or unable to sleep at night)? [id number] [email or web address] Information not available 06/03/2023 Family History Relationship Description Onset Age of this Age Resolved Age Notes LastModified by Organization Details LastModified Time Unspecified Relation Heart disease [id number] Not available 11/25/2022 19:49:16 Unspecified Relation Family history of stroke [id number] Not available 11/25/2022 19:49:16 Unspecified Relation Family history of malignant neoplasm [id number] Not available 11/25/2022 19:49:16 Unspecified Relation Blood coagulation disorder [id number] Not available 11/25/2022 19:49:16 Unspecified Relation Diabetes mellitus [id number] Not available 11/25/2022 19:49:16 Unspecified Relation Kidney disease [id number] Not available 11/25/2022 19:49:16 Father Hypertensive disorder [id number] Not available 11/25/2022 19:49:16 Medical History Condition Response ARTHRITIS Y USE OF BLOOD THINNERS Y HEART ARRHYTHMIA Y ANEMIA/BLOOD DISORDER Y Gynecological HistoryNo gynecological history recorded. Obstetrics History GPAL:G 0 P 0 0 0 0 Past Encounters Encounter ID Performer Location Encounter Start Date Encounter Closed Date Diagnosis/Indication Diagnosis SNOMED-CT Code Diagnosis ICD10 Code Diagnosis IMO Codes Diagnosis Note [id number] Jagdeep Valdez MD [facility] [id number] [facility], [facility] [address] [place] [address] 06/04/2021 00:00:00 06/04/2021 15:26:54 [id number] Jagdeep Valdez MD [facility] [place] [address] [place] [address] 08/13/2021 00:00:00 08/13/2021 17:15:14 [id number] Darrell Colvin MD [facility] [place] [id number] [facility] [address] [place] [address] 08/28/2021 00:00:00 08/28/2021 16:11:15 [id number] Jagdeep Valdez MD [facility] [place] [address] [address] [place] [address] 12/23/2021 00:00:00 12/23/2021 12:55:24 [id number] Jagdeep Valdez MD [facility] [place] [address] [place] [address] 04/28/2022 00:00:00 04/28/2022 17:10:20 [id number] Yury Duvall MD [facility] [place] [address] [facility], [facility] [place] [address] 06/03/2023 15:03:58 06/03/2023 16:16:28 Rheumatoid arthritis 29967093 M06.9 on Enbrel Depressive disorder 3548 9007 F32.A Insomnia 523866581 G47.0 0 Obese 866843508 E66.9 [id number] Yury Duvall MD [facility] [place] [address] [place] [address] 07/01/2023 14:42:16 07/01/2023 15:09:28 Rheumatoid arthritis 61790597 M06.9 on Enbrel Bronchitis 73450088 J40 Gastroesop hageal reflux disease 549594833 K21.9 [id number] Yury Duvall MD [facility] [place] [facility] [place] [address] 07/29/2023 15:00:07 07/29/2023 15:26:22 Rheumatoid arthritis 78715955 M06.9 on Enbrel Carpal florin lesa syndrome 97376643 G56.03 [id number] Yury Duvall MD [facility] [place] [facility] [place] [address] 10/05/2023 17:15:25 10/06/2023 15:10:38 Rheumatoid arthritis 50770707 M06.9 on Enbrel Essential hypertension 34606503 I10 Depressive disorder 3548 9007 F32.A Gastroesop hageal reflux disease 509830480 K21.9 Insomnia 960311950 G47.0 0 Obese 334269339 E66.9 [id number] Yury Duvall MD [facility] [place] [facility] [place] [address] 11/17/2023 12:58:54 11/17/2023 13:17:02 Rheumatoid arthritis 48477673 M06.9 on Enbrel Obese 983468101 E66.9 Gastroesop hageal reflux disease 493046777 K21.9 [id number] Yury Duvall MD [facility] [place] [address] [facility] [address] [address] 12/29/2023 14:50:34 12/29/2023 15:14:30 Essential hypertension 60358123 I10 Gastroesop hageal reflux disease 628625099 K21.9 Rheumatoid arthritis 698 62986 M06.9 on Enbrel Depressive disorder 3548 9007 F32.A Insomnia 252052051 G47.0 0 Obese 617307636 E66.9 [id number] Shun Sánchez MD [facility] [place] [address] [facility] [address] [place] [address] 05/26/2024 12:26:28 05/26/2024 12:54:38 Rheumatoid arthritis 35622580 M06.9 on Enbrel Anemia 254972464 D64.9 Obese 841869639 E66.9 Depressive disorder 3548 9007 F32.A Gastroesop hageal reflux disease 126888670 K21.9 Essential hypertension 86014284 I10 Insomnia 128125815 G47.0 0 [id number] Shun Sánchez MD [address] [address] 09/07/2024 15:00:51 09/07/2024 16:10:49 Insomnia 586829676 G47.00 Depressive disorder 3548 9007 F32.A Acute mastitis 20280858 N61.0 Screening mammography 24 439801 Z12.31 Health Concerns Section Related Observation LastModified by Organization Detai ls LastModified Time None Recorded Concern Status LastModified by Organization Details LastModified Time None Recorded Advance Directives Directive None Recorded Payers Insurance Date Sequence Insurance Name Policy Number Policy Sellers Covered Member ID Sellers Member ID Guarantor Name 05/15/2025 1 [facility] ON OR AFTER 03/27/21 (MEDICAID REPLACEMENT - HMO) Amparo Cade [id number] Amparo Cade Notes Date Note Type Note Provider Name and Address Organization Details Recorded Time 10/05/2023 text/html ROS as noted in the HPI needs refills ONESIMO Esquivel [facility] [address] [place] [address], [place], [address], [facility] [employer] 10/09/2023 16:06:32 11/17/2023 text/html ROS as noted in the HPI pain all over ONESIMO Esquivel [address], [place], [address], [facility] [employer] 11/24/2023 20:03:50 12/29/2023 text/html ROS as noted in the HPI no changes , in pain , sees rheumatology ONESIMO Esquivel [address], [place], [address], [facility] [employer] [facility] [employer] 01/10/2024 15:03:21 05/26/2024 text/html ROS as noted in the HPI in 3 or 4 hospitals , had to wean off methotrexate: mouth was inflamed , bleeding and gastric bleeding too, resolved ONESIMO Esquivel [address], [place], [address], [facility] [employer] 05/30/2024 08:55:45 09/07/2024 text/html ROS as noted in the HPI under stress ..... ONESIMO Esquivel [address], [place], [address], [facility] [employer] 09/11/2024 12:25:33 OBGyn Episode No OBEpisode recorded.
--- OUTSIDE RECORDS SUMMARY | 2025-06-29 16:00 | XMS_ITS | Encounter Summary ---
Author Organization [facility] Address [address] [facility] [place] [address] Care Team Providers Care Patent Searcher Name Role Phone Andre Carver Primary Care Provider + Reason for Visit * Reason Onset Date Comments Medication Issue 06/29/2025 Encounter Details Date Type Department Care Team (Late st Contact Info) Description 06/29/2025 Telephone [facility] - Centralized Scheduling [address] [place] [address] Grady Machado MD [facility] [place] [address] Medication Issue Social History Tobacco Use Types Packs/Day Years [...] encounter Miscellaneous Notes * Telephone Encounter - Darling Kang - 06/29/2025 10:33 AM CDT Current Provider: Jeannette Reason for Call: Patient calling in regards to methotrexate prescription. States she picked up the medication, but not the needles for the injections. Please advise. Patient Call Back Number: [id number] documented in this encounter Plan of Treatment Upcoming Encounters Date Type Department Care Team (Late st Contact Info) Description 07/06/2025 1:00 PM CDT Hospital Encounter [facility] [address] [place] [address] Anthony Salvador MD [facility] [facility] [place] [address] 07/17/2025 2:30 PM CDT Procedure visit [facility] - PHOTOGRAPH EDITOR [address] [facility] [address] [place] [address] 07/17/2025 3:00 PM CDT Office Visit [facility] - PHOTOGRAPH EDITOR [address] [facility] [address] [place] [address] Gideon Hernandez MD [address] [facility] 290 [place] [address] 07/17/2025 3:30 PM CDT Office Visit [facility] - Ophthalmology [address] [facility], [place] [address] Harsha Inman, CONRAD [address] [place] [address] 08/03/2025 1:00 PM UNDERCOAT SPRAYER Appointment [facility] [address] [place] [address] 08/08/2025 10:30 AM UNDERCOAT SPRAYER Office Visit [facility] - Rheumatology [address] [facility], [place] [address] Grady Machado MD [address] [facility] [place] [address] documented as of this encounter Visit Diagnoses Not on filedocumented in this encounter Care Teams Patent Searcher Relationship Specialty Start Date End Date Andre Carver PA [address] [place] [phone] PCP - General Physician Manager Medical 02/28/18 documented as of this encounter
--- OUTSIDE RECORDS SUMMARY | 2025-06-29 16:00 | XMS_ITS | Encounter Summary ---
Author Organization [facility] Address [address] [facility] [place] [address] Care Team Providers Care Knit Goods Washer Name Role Phone nAdre Carver Primary Care Provider + Reason for Visit * Reason Onset Date Comments Medication Problem 06/15/2025 PA denial Encounter Details Date Type Department Care Team (Late st Contact Info) Description 06/15/2025 Telephone [facility] - Rheumatology [address] [facility], [place] [address] Grady Machado MD [address] [facility] [place] [address] Medication Problem (PA denial) Social History Tobacco Use Types Packs/Day Years [...] Telephone Encounter - Janae Walls RN - 06/15/2025 12:47 PM CDT Patients OTREXUP 25MG/0.4ML was denied. Appeal info placed in providers box. documented in this encounter Plan of Treatment Upcoming Encounters Date Type Department Care Team (Late st Contact Info) Description 07/06/2025 1:00 PM CDT Hospital Encounter [facility] [address] [place] [address] Anthony Salvador MD [facility] [place] [phone] 07/17/2025 2:30 PM CDT Procedure visit [facility] - PROBATION COUNSELOR [address] [facility] [address] [place] [address] 07/17/2025 3:00 PM CDT Office Visit [facility] - PROBATION COUNSELOR [address] [facility] [address] [place] [address] Gideon Hernandez MD [address] [facility] 290 [place] [address] 07/17/2025 3:30 PM CDT Office Visit [facility] - Ophthalmology [address] [facility], [place] [address] Harsha Inman OD [address] [place] [address] 08/03/2025 1:00 PM DIVINITY TEACHER Appointment [facility] [address] [place] [address] 08/08/2025 10:30 AM DIVINITY TEACHER Office Visit [facility] - Rheumatology [address] [place] [address] Grady Machado MD [address] [facility] [place] [address] documented as of this encounter Visit Diagnoses Not on filedocumented in this encounter Care Teams Knit Goods Washer Relationship Specialty Start Date End Date Andre Carver PA [address] [place] [phone] PCP - General Physician Manager Social Work 02/28/18 documented as of this encounter
--- OUTSIDE RECORDS SUMMARY | 2025-06-29 16:00 | XMS_ITS | Encounter Summary ---
Author Organization [facility] Address [address] [facility] [place] [address] Care Team Providers Care Horse Show Manager Name Role Phone Andre Carver Primary Care Provider + Reason for Visit * Reason Onset Date Comments Medication Problem 06/12/2025 Prior authori zation denial/appeal Encounter Details Date Type Department Care Team (Late st Contact Info) Description 06/12/2025 Telephone [facility] - Rheumatology [address] [facility], [facility] [place] [address] Grady Machado MD [address] [facility] [address] Medication Problem (Prior authorization denial/appeal) Social History Tobacco Use Types Packs/Day Years [...] Telephone Encounter - Janae Walls RN - 06/12/2025 8:27 AM CDT Patients methotrexate, PF, (Otrexup) 25 MG/0.4ML auto-injector, was denied. Appeal info placed in providers box. documented in this encounter Plan of Treatment Upcoming Encounters Date Type Department Care Team (Late st Contact Info) Description 07/06/2025 1:00 PM CDT Hospital Encounter [facility] [address] [place] [address] Anthony Salvador MD [address] [facility] [address] [place] [place] [address] 07/17/2025 2:30 PM CDT Procedure visit [facility] - LAUNDROMAT MANAGER [address] [facility] [address] [place] [address] 07/17/2025 3:00 PM CDT Office Visit [facility] - LAUNDROMAT MANAGER [address] [facility] [address] [place] [address] Gideon Hernandez MD [address] [place] [address] 07/17/2025 3:30 PM CDT Office Visit [facility] - Ophthalmology [address] [facility], [place] [address] Harsha Inman, CONRAD [address] [place] [phone] 08/03/2025 1:00 PM GUNNERY/ORDNANCE OFFICER Appointment [facility] [address] [place] [address] 08/08/2025 10:30 AM GUNNERY/ORDNANCE OFFICER Office Visit [facility] - Rheumatology [address] [facility], [place] [phone] Grady Machado MD 12[address] [facility] [address] documented as of this encounter Visit Diagnoses Not on filedocumented in this encounter Care Teams Horse Show Manager Relationship Specialty Start Date End Date Andre Carver PA [address] [place] [phone] PCP - General Physician Switch Foreman 02/28/18 documented as of this encounter
--- OUTSIDE RECORDS SUMMARY | 2025-06-29 16:00 | XMS_ITS | Encounter Summary ---
Author Organization [facility] Address [address] [facility] [place] [address] Care Team Providers Care Bulb Weeder Name Role Phone Andre Carver Primary Care Provider + Encounter Details Date Type Department Care Team (Late st Contact Info) Description 06/29/2025 Orders Only [facility] - Rheumatology [address] [facility] [place] [address] Suni Stephens MD [address] [place] [address] Rheumatoid arthritis involving multiple sites with positive [...] Description 07/06/2025 1:00 PM CDT Hospital Encounter [facility] [address] [place] [address] Anthony Salvador MD [facility]5 [place] [address] 07/17/2025 2:30 PM CDT Procedure visit [facility] - ENTERER [address] [facility] [address] [place] [address] 07/17/2025 3:00 PM CDT Office Visit [facility] - ENTERER [address] [facility] [address] [place] [address] Gideon Hernandez MD [address] [facility] 290 [place] [address] 07/17/2025 3:30 PM CDT Office Visit [facility] - Ophthalmology 1225 [facility], [place] [phone] Harsha Inman OD [address] [place] [address] 08/03/2025 1:00 PM GROUP EXERCISE MANAGER Appointment [facility] [address] [place] [address] 08/08/2025 10:30 AM GROUP EXERCISE MANAGER Office Visit [facility] - Rheumatology 12[address] [facility], [facility] [place] [address] Grady Machado MD [address] [facility] [place] [address] documented as of this encounter Visit Diagnoses Diagnosis Rheumatoid arthritis involving multiple sites with positive rheumatoid factor (HCC) 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 therapy (HCC) Therapeutic drug monitoring Encounter for therapeutic drug monitoring documented in this encounter Care Teams Bulb Weeder Relationship Specialty Start Date End Date Andre Carver PA [address] [place] [address] PCP - General Physician Coding And Reimbursement Specialist 02/28/18 documented as of this encounter
--- OUTSIDE RECORDS SUMMARY | 2025-06-29 16:00 | XMS_ITS | Encounter Summary ---
Author Organization [facility] Address [address] [facility] [place] [address] Care Team Providers Care Autocad Designer Name Role Phone Andre Carver Primary Care Provider + Encounter Details Date Type Department Care Team (Late st Contact Info) Description 06/27/2025 Orders Only [facility] - Rheumatology [address] [facility], [place] [address] Grady Machado MD [address] [facility] [address] Social History Tobacco Use Types Packs/Day Years [...] Description 07/06/2025 1:00 PM CDT Hospital Encounter [facility]5 [place] [address] Anthony Salvador MD [address] [place] [phone] 07/17/2025 2:30 PM CDT Procedure visit [facility] - CABLE SUPERVISOR [address] [facility] 400 [place] [address] 07/17/2025 3:00 PM CDT Office Visit [facility] - CABLE SUPERVISOR [address] [facility] 400 [place] [address] Gideon Hernandez MD 64[address] [facility] 290 [place] [address] 07/17/2025 3:30 PM CDT Office Visit [facility] - Ophthalmology [facility]5 [place] [address] Harsha Inman OD [address] [place] [address] 08/03/2025 1:00 PM BUILDING CERTIFIER Appointment [facility] [address] [place] [address] 08/08/2025 10:30 AM BUILDING CERTIFIER Office Visit [facility] - Rheumatology 12[address] [facility], [facility] [place] [address] Grady Machado MD [address] [facility] [address] documented as of this encounter Visit Diagnoses Not on filedocumented in this encounter Care Teams Autocad Designer Relationship Specialty [place] [address] [place] [phone] PCP - General Physician Astrophysics Teacher 02/28/18 documented as of this encounter
--- OUTSIDE RECORDS SUMMARY | 2025-06-29 16:00 | XMS_ITS | Clinical Summary ---
Author Organization [facility] Address [address] [place] [address] Care Team Providers Care Web Analyst Name Role Phone None, Provider MD Primary Care Provider Unavaila ble Allergies Active Allergy Reactions Criticality Noted Date Comments Chocolate Hives 08/17/2022 Ibuprofen Hives 08/17/2022 Shellfish-Derived Products Hives 2 Shrimp (Diagnostic) Hives 08/17/2022 Medications medroxyPROGESTER one (PROVERA) 10 MG tablet Take 1 tablet (10 mg total) by mouth daily. 10 tablet 08/17/2022 Active Social History Tobacco Use Types Packs/Day Years Used Date Smoking Tobacco: Never Smokeless Tobacco: Never Tobacco Cessation:Counseling Given: Not Answered Alcohol Use Standard Drinks/Week Comments Never 0 (1 standard drink = 0.6 oz pur e alcohol) Comments No Sex and Gender Information Value Date Recorded Sex Assigned at Not on file Legal Sex Female 5:12 PM CDT Gender Identity Not on file Sexual Orientation Not on file Last Filed Vital Signs Vital Sign Reading Time Taken Comments Blood Pressure 163/97 08/17/2022 6:22 PM [employer]LO[employer] Pulse 68 08/17/2022 6:22 PM [employer] Temperature 37.2 C (99 F) 08/17/2022 6:22 PM [employer] Respiratory Rate 20 08/17/2022 6:22 PM [employer] Oxygen Saturation 99% 08/17/2022 6:22 PM [employer] Inhaled Oxygen Concentration - - Weight 89.8 kg (198 lb) 08/17/2022 6:23 PM [employer] Height 167.6 cm (5' 6) 08/17/2022 6:23 PM [employer] Body Mass Index 31.96 08/17/2022 6:23 PM [employer] Plan of Treatment Health Maintenance Due Date Last Done Comments Cervical Cancer Screening Pa p Smear (Age 30 to 64) Every 3 Years 1979 Colorectal Cancer Screening Colonoscopy (10 Years) 1979 Annual Physical 1982 Hepatitis C 1997 Hepatitis B Vaccines (1 of 3 - 19+ 3-dose series) 1998 Cervical Cancer Screening Pa p with HPV Testing (Age 30 to 64) Every 5 Years 2009 Cervical Cancer Screening wi th HPV 2009 Mammogram Screening 2019 COVID-19 Vaccine (2 - 2024-2 6 season) 2025 10/08/2021 Influenza Adult (#1) 2025 07/23/2015 DTaP, Tdap and Td Vaccines ( 3 - Td or Tdap) 03/24/2032 03/24/2022, 10/22/1989 Meningococcal B Vaccine Aged Out No l onger eligible based on patient's age to complete this topic Meningococcal Vaccine Aged Out No isaiah andrey eligible based on patient's age to complete this topic Pneumococcal Vaccine: Pediatrics (0 to 5 Years) and At-Risk Patients (6 to 49 Years) Aged Out No longer eligible b ased on patient's age to complete this topic RSV Immunizations Under 20 Months Aged Out No longer eligible b ased on patient's age to complete this topic Insurance Care Teams Web Analyst Relationship Specialty Start Date End Date None, Provider, MD PCP - General UNKNOWN PHYSICIAN SPECIALTY 08/17/22
--- OUTSIDE RECORDS SUMMARY | 2025-06-29 16:00 | XMS_ITS | Encounter Summary ---
Author Organization [facility] Address [address] [facility] [place] [address] Care Team Providers Care Public Relations Assistant Name Role Phone Andre Carver Primary Care Provider + Encounter Details Date Type Department Care Team (Late st Contact Info) Description 06/25/2025 Orders Only [facility] - Rheumatology 1225 [facility], [place] [address] Grady Machado MD [address] [facility] [place] [address] Social History Tobacco Use Types Packs/Day Years [...] Description 07/06/2025 1:00 PM CDT Hospital Encounter [facility]5 [place] [address] Anthony Salvador MD [address] [place] [phone] 07/17/2025 2:30 PM CDT Procedure visit [facility] - DEVELOPMENT REPRESENTATIVE 1031 [facility] 400 [place] [address] 07/17/2025 3:00 PM CDT Office Visit [facility] - DEVELOPMENT REPRESENTATIVE 1031 [facility] 400 [place] [address] Gideon Hernandez MD 6420 [facility] 290 [place] [address] 07/17/2025 3:30 PM CDT Office Visit [facility] - Ophthalmology [facility]5 [place] [phone] Harsha Inman OD [address] [place] [address] 08/03/2025 1:00 PM BIRD KEEPER Appointment [facility] [address] [place] [address] 08/08/2025 10:30 AM BIRD KEEPER Office Visit [facility] - Rheumatology 1225 [facility], [facility] [place] [address] Grady Machado MD [address] [facility] [place] [address] documented as of this encounter Visit Diagnoses Not on filedocumented in this encounter Care Teams Public Relations Assistant Relationship Specialty [place] [address] [place] [phone] PCP - General Physician Instructor Physical Education 02/28/18 documented as of this encounter
--- OUTSIDE RECORDS SUMMARY | 2025-06-29 16:00 | XMS_ITS | Encounter Summary ---
Author Organization [facility] Address [address] [facility] [place] [address] Care Team Providers Care General Repairer Name Role Phone Andre Carver Primary Care Provider + Reason for Visit * Reason Onset Date Comments LABS ONLY 06/07/2025 Encounter Details Date Type Department Care Team (Late st Contact Info) Description 06/07/2025 Telephone [facility]ology [address] [facility], [facility] [place] [address] Grady Machado MD [address] [facility] [place] [address] LABS ONLY Social History Tobacco Use Types Packs/Day Years [...] Telephone Encounter - Janae Walls RN - 06/07/2025 3:13 PM CDT Attempt 1: RN called patient to see which lab location patient needed orders to be faxed too. Patient stated she would call back with the information. documented in this encounter Plan of Treatment Upcoming Encounters Date Type Department Care Team (Late st Contact Info) Description 07/06/2025 1:00 PM CDT Hospital Encounter [facility] [address] [place] [address] Anthony Salvador MD [address] [facility] [place] [address] 07/17/2025 2:30 PM CDT Procedure visit [facility] - SHIELD OPERATOR [address] [facility] [place] [phone] 07/17/2025 3:00 PM CDT Office Visit [facility] - SHIELD OPERATOR [address] [facility] [address] [place] [address] Gideon Hernandez MD [address] [address] 07/17/2025 3:30 PM CDT Office Visit [facility] - Ophthalmology [address] [facility], [place] [address] Harsha Inman OD [address] [place] [address] 08/03/2025 1:00 PM ACCOUNT DIRECTOR Appointment [facility] [address] [place] [address] 08/08/2025 10:30 AM ACCOUNT DIRECTOR Office Visit [facility] - Rheumatology [address] [place] [phone] Grady Machado MD [address] [facility] [place] [address] documented as of this encounter Visit Diagnoses Not on filedocumented in this encounter Care Teams General Repairer Relationship Specialty Start Date End Date Andre Carver PA [address] [place] [phone] PCP - General Physician Golf Course Superintendent 02/28/18 documented as of this encounter
--- OUTSIDE RECORDS SUMMARY | 2025-06-29 16:00 | XMS_ITS | Encounter Summary ---
Author Organization [facility] Address [address] [address] Care Team Providers Care Hot Header Operator Name Role Phone Andre Carver Primary Care Provider + Encounter Details Date Type Department Care Team (Late st Contact Info) Description 04/26/2020 Telephone [facility] [address] [place], [place] [id number] Tonia Angela MD [address] [phone] Social History Tobacco Use Types Packs/Day Years [...] 7:51 AM JHONYT Shelly Beard RN * Is person blind [...] encounter Miscellaneous Notes * Telephone Encounter - Isabelle Shannon - 04/26/2020 12:59 PM CDT Current Provider name:*Dr. Tonia Angela Reason for call: Ms. Amparo Cade has lab orders from Dr. Angela that have been sent to [facility] and about 20 have not been signed and they need to be signed. They all start: [id number] and they end as follows: [phone] Angela signs and faxes them to [facility], Patient Call Back number: [phone] documented in this encounter Plan of Treatment Upcoming Encounters Date Type Department Care Team (Late st Contact Info) Description 07/06/2025 1:00 PM CDT Hospital Encounter [facility] [address] [place] [address] Anthony Salvador MD [address] [facility] [place] [phone] 07/17/2025 2:30 PM CDT Procedure visit [facility] - COMB CAPPER [address] [facility] [address] [place] [phone] 07/17/2025 3:00 PM CDT Office Visit [facility] - COMB CAPPER [address] [facility] [address] [place] [address] Gideon Hernandez MD [address] [facility] [address] [place] [address] 07/17/2025 3:30 PM CDT Office Visit [facility] - Ophthalmology [address] [facility] [place] [phone] Harsha Inman, CONRAD [address] [place] [address] 08/03/2025 1:00 PM DREDGE MECHANIC Appointment [facility] [address] [place] [address] 08/08/2025 10:30 AM DREDGE MECHANIC Office Visit [facility] - Rheumatology [address] [facility], [facility] [place] [phone] Grady Machado MD [address] [facility] [place] [address] documented as of this encounter Visit Diagnoses Not on filedocumented in this encounter Care Teams Hot Header Operator Relationship Specialty Start Date End Date Andre Carver PA [address] [place] [phone] PCP - General Physician Cellular Phone Repairer 02/28/18 documented as of this encounter
--- OUTSIDE RECORDS SUMMARY | 2025-06-29 16:00 | XMS_ITS | Encounter Summary ---
Author Organization [facility] Address [address] [facility] [place] [address] Care Team Providers Care Residential Lawn Specialist Name Role Phone Andre Carver Primary Care Provider + Reason for Visit * Reason Onset Date Comments Refill Request 04/13/2024 Hydrocodone/Acet aminophen and Lidocaine Encounter Details Date Type Department Care Team (Late st Contact Info) Description 04/13/2024 Refill [facility] [address] [place] [address] Stephan Winkler DO [address] [place] [address] Refill Request (Hydrocodone/Acetaminoph en and Lidocaine) Social History Tobacco Use Types Packs/Day Years Used Date Smoking Tobacco: Never Smokeless Tobacco: Never Alcohol Use Standard Drinks/Week Comments No 0 (1 standard drink = 0.6 oz pur e alcohol) PHQ-2 Answer Date Recorded PHQ2 TOTAL SCORE 6 05/27/2022 Comments No Sex and Gender Information Value [...] encounter Miscellaneous Notes * Telephone Encounter - Ben Cook PharmD - 04/13/2024 11:58 AM CDT [facility] has received retail prescription order (Hydrocodone/Acetaminophen andLidocaine) for this patient. Our pharmacy is unable to fill the prescription due to the medication being classified as a retail therapy. Prescription(s) have been pended back to prescriber to be resent to correct pharmacy- ([facility]). Thank you for the opportunity to participate in this patient's care. Ben Cook PharmD [facility]- documented in this encounter Plan of Treatment Upcoming Encounters Date Type Department Care Team (Late st Contact Info) Description 07/06/2025 1:00 PM CDT Hospital Encounter [facility] [address] [place] [address] Anthony Salvador MD [address] [facility] [place] [phone] 07/17/2025 2:30 PM CDT Procedure visit [facility] - REGISTERED DENTAL ASSISTANT RDA [address] [facility] [address] [place] [address] 07/17/2025 3:00 PM CDT Office Visit [facility] - REGISTERED DENTAL ASSISTANT RDA [address] [facility] [address] [place] [phone] Gideon Hernandez MD [address] [place] [address] 07/17/2025 3:30 PM CDT Office Visit [facility] - Ophthalmology [address] [facility] [place] [address] Harsha Inman, CONRAD [address] [place] [address] 08/03/2025 1:00 PM WELDER FITTER ARC Appointment [facility] [address] [place] [address] 08/08/2025 10:30 AM WELDER FITTER ARC Office Visit [facility] - Rheumatology [address] [facility], [place] [phone] Grady Machado MD [address] [facility] [place] [address] documented as of this encounter Visit Diagnoses Diagnosis Other lesions of oral mucosa documented in this encounter Care Teams Residential Lawn Specialist Relationship Specialty Start Date End Date nAdre Carver PA [address] [place] [phone] PCP - General Physician Submersible Pilot 02/28/18 documented as of this encounter
--- OUTSIDE RECORDS SUMMARY | 2025-06-29 16:01 | XMS_ITS | Clinical Summary ---
Author Organization [facility] Address [address] [place] [address] Care Team Providers Care Machine Lacer Name Role Phone Andre Carver Primary Care Provider + Source Comments [facility],non-owned Affiliates and Associated Physician Practices is amultiple site organization consisting of ambulatory clinics and hospital sitesin [place], [place], [place] and [place]. This disclosure is being madepursuant to the Care Everywhere program and may not contain all information available regarding this patient. Last updated 18.[facility] Allergies Active Allergy Reactions Criticality Noted Date Comments Diphenhydramine Urticaria Medium 02/28/2018 Chocolate Urticaria Medium 02/28/2018 Ibuprofen Swelling,Anaphylaxis High 03/01/2018 Shellfish Allergy Urticaria Medium 02/28/2018 Trazodone Psychiatric Medium 10/18/2024 Medications * Be aware that medications may not be up to date on this document. Alwaysverify current medications with the patient. Turmeric 500 MG Take 1 tablet by mouth once daily Active acetaminophen CR (Tylenol Arthritis Pain) 650 MG tablet Take 1 (one) tablet by mouth 4 times daily Active Menthol, Topical Analgesic, (BIOFREEZE ROLL-ON EX) Active Foot Care Products (BIOFREQUENCY INSOLES) MISC Active traZODone (DESYREL) 100 MG tablet 10/18/19 20 Active SYMBICORT 160-4.5 MCG/ACT inhaler 11/24/19 20 Active PROAIR HFA 108 (90 Base) MCG/ACT inhaler 10/23/19 20 Active busPIRone (BUSPAR) 10 MG tablet 05/19/20 21 Active traMADol (ULTRAM) 50 MG tablet Take 1 (one) tablet by mouth every 8 hours as needed 04/21/20 21 Active DULoxetine (Cymbalta) 60 MG capsule Take 1 (one) capsule by mouth once daily 04/27/20 22 Active medroxyPROGESTERo ne (Provera) 10 MG tablet Take 1 (one) tablet by mouth once daily 08/18/20 22 Active promethazine-DM syrup promethazine-DM 6.25 mg-15 mg/5 mL oral syrup TAKE 5 ML BY MOUTH EVERY 4 HOURS FOR 10 DAYS. Active ferrous sulfate 325 (65 FE) MG tablet Take 1 (one) tablet by mouth once daily 90 tablet 1 09/01/20 22 Active promethazine (Phenergan) 12.5 MG tablet Take 1 (one) tablet by mouth 2 times daily 09/02/20 22 Active meloxicam (Mobic) 15 MG tablet Take 1 (one) tablet by mouth once daily 09/14/20 22 Active norethindrone (Ortho Micronor; Nor-Qd; Jessica; Jacqueline; Sandra-Be; Danika; Jolivette) 0.35 MG tabletIndications :Abnormal uterine bleeding Take 1 (one) tablet by mouth once daily 84 tablet 3 10/06/19 23 Active folic acid (Folvite) 1 MG tabletIndications :Rheumatoid arthritis involving multiple sites with positive rheumatoid factor (HCC) Take 1 (one) tablet by mouth once daily 30 tablet 11 11/12/19 23 025 Active losartan (Cozaar) 100 MG tablet Take 1 (one) tablet by mouth once daily 12/12/19 23 Active HYDROcodone-aceta minophen ([place]) 5-325 MG tabletIndications :Other lesions of oral mucosa Take 1 (one) tablet by mouth every 6 hours as needed for Pain 12 tablet 04/13/20 24 Active azithromycin (Zithromax) 250 MG tablet TAKE 2 TABLETS BY MOUTH TODAY, THEN TAKE 1 TABLET DAILY FOR 4 DAYS DIRECTED 06/13/20 24 Active methylPREDNISolon e acetate (DEPO-Medrol) 80 MG/ML injection Take 1 mL by injection route. 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,Immunosu ppression due to drug therapy (HCC) TAKE 8 (EIGHT) TABLETS BY MOUTH EVERY 7 DAYS 96 tablet 1 05/09/20 25 026 Active hydroxychloroquin e (Plaquenil) 200 MG tabletIndications :Rheumatoid arthritis involving multiple sites with positive rheumatoid factor (HCC),Immunosuppr ession due to drug therapy (HCC),Therapeutic drug monitoring,Excess desiree bleeding in premenopausal period Take 1 (one) tablet by mouth 2 times daily 60 tablet 06/06/20 25 Active methotrexate, PF, (Otrexup) 25 MG/0.4ML auto-injectorIndi cations:Rheumatoi d arthritis involving multiple sites with positive rheumatoid factor (HCC),Immunosuppr ession due to drug therapy (HCC),Therapeutic drug monitoring,Long-t erm corticosteroid use Inject 0.4 mL subcutaneously every 7 days (once a week) 4.8 mL 3 06/06/20 25 Active predniSONE (Deltasone) 5 MG tablet Take 1 (one) tablet by mouth once daily 30 tablet 2 06/06/20 25 Active Methotrexate Sodium (methotrexate, PF,) 50 MG/2ML injectionIndicati ons:Rheumatoid arthritis involving multiple sites with positive rheumatoid factor (HCC) Inject 1 mL into muscle every 7 days (once a week) 12 mL 2 06/15/20 25 026 Active Syringe/Needle, Disp, (Safety Syringe/Needle) 27G X 1/2 1 ML MISCIndications:R heumatoid arthritis involving multiple sites with positive rheumatoid factor (HCC) Use 1 Each every 7 days (once a week) 50 Each 3 06/29/20 25 026 Active predniSONE (Deltasone) 10 MG tablet 03/12/20 25 025 Disconti nued(Dos e Adjustme nt) Active Problems Problem Noted Date Diagnosed Date Rheumatoid arthritis involvi ng multiple sites with positive rheumatoid factor 07/02/2023 Fibroids 02/01/2023 Tubal ovarian abscess 03/01/2018 Encounters Date Type Department Care Team Description 06/29/2025 Orders Only [facility] - Rheumatology [address] [place] [phone] Grady Machado MD Abnormal vaginal bleeding ; Rheumatoid arthritis involving multiple sites with positive rheumatoid factor (HCC) 06/29/2025 Telephone [facility] - Centralized Scheduling [address] [place] [phone] Grady Machado MD Medication Issue 06/29/2025 Orders Only [facility] - Rheumatology [address] [place] [phone] Suni Stephens MD Rheumatoid arthritis involving multiple sites with positive rheumatoid factor ([facility]); 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 therapy ([facility]); Therapeutic drug monitoring 06/27/2025 Orders Only [facility] - Rheumatology [address] [place] [phone] Grady Machado MD 06/27/2025 Telephone [facility] - [facility] [address] [place] [address] Domo Dowell MD Vaginal Bleeding; Returned Call 06/26/2025 Telephone [facility] [address] [place] [address] Kasia Cornelius, RN Appointment 06/25/2025 Orders Only [facility] - Rheumatology [address] [place] [phone] Grady Machado MD 06/22/2025 Orders Only [facility] Physician [facility] - Rheumatology [address] [place] [phone] Suni Stephens MD Rheumatoid arthritis involving multiple sites with positive rheumatoid factor (HCC); 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 therapy (HCC); Therapeutic drug monitoring 06/15/2025 Telephone [facility] - Rheumatology [address] [place] [phone] Grady Machado MD Medication Problem ([place] denial) 06/15/2025 Orders Only [facility] - Rheumatology [address] [place] [phone] Grady Machado MD Rheumatoid arthritis involving multiple sites with positive rheumatoid factor (HCC) 06/15/2025 Orders Only [facility] - Rheumatology [address] [place] [phone] Suni Stephens MD Rheumatoid arthritis involving multiple sites with positive rheumatoid factor (HCC); 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 therapy (HCC); Therapeutic drug monitoring 06/14/2025 [facility] Physician [facility] - Rheumatology [address] [place] [phone] Grady Machado MD Medication Prior Auth Request 06/12/2025 [facility] Physician [facility] - Rheumatology [address] [place] [phone] Grady Machado MD Medication Problem (Prior authorization denial/appeal) 06/08/2025 [facility] Physician [facility] - Rheumatology [address] [place] [phone] Grady Machado MD Follow-up 06/08/2025 Orders Only [facility] Physician [facility] - Rheumatology [address] [place] [phone] Suni Stephens MD Rheumatoid arthritis involving multiple sites with positive rheumatoid factor (HCC); 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 therapy (HCC); Therapeutic drug monitoring 06/07/2025 Telephone [facility] - Rheumatology [address] [place] [phone] Grady Machado MD LABS ONLY 06/07/2025 Travel 06/06/2025 10:30 AM CDT Office Visit [facility] - Rheumatology [address] [place] [phone] Grady Machado MD Rheumatoid arthritis involving multiple sites with positive rheumatoid factor (HCC) (Primary Dx); 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 therapy (HCC); Therapeutic drug monitoring; Excessive bleeding in premenopausal period; Long-term corticosteroid use 06/06/2025 Travel 06/05/2025 Orders Only [facility] Physician [facility] - Rheumatology [address] [place] [phone] Rene Van MD 06/01/2025 Orders Only [facility] Physician [facility] - Rheumatology [address] [place] [phone] Suni Stephens MD Rheumatoid arthritis involving multiple sites with positive rheumatoid factor (HCC); 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 therapy (HCC); Therapeutic drug monitoring 05/29/2025 11:50 AM CDT - 05/29/2025 11:59 PM CDT Hospital Encounter [facility] [address] [place] [phone] Anthony Salvador MD Discharge Disposition: Home or Self Care 05/29/2025 Travel 05/25/2025 Orders Only [facility] Physician [facility] - Rheumatology [address] [place] [phone] Suni Stephens MD Rheumatoid arthritis involving multiple sites with positive rheumatoid factor (HCC); Therapeutic drug monitoring; 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; 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 therapy (HCC) 05/18/2025 Orders Only [facility] - Rheumatology [address] [place] [phone] Suni Stephens MD Rheumatoid arthritis involving multiple sites with positive rheumatoid factor (HCC); 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 therapy (HCC); Therapeutic drug monitoring 05/11/2025 Orders Only [facility] - Rheumatology [address] [place] [phone] Suni Stephens MD Rheumatoid arthritis involving multiple sites with positive rheumatoid factor (HCC); 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 therapy (HCC); Therapeutic drug monitoring 05/09/2025 Travel 05/05/2025 Refill [facility] - Rheumatology [address] [place] [phone] Suni Stephens MD Refill Request 05/04/2025 Orders Only [facility] Physician [facility] - Rheumatology [address] [place] [phone] Suni Stephens MD Rheumatoid arthritis involving multiple sites with positive rheumatoid factor (HCC); 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 therapy (HCC); Therapeutic drug monitoring 05/03/2025 Refill [facility] - Rheumatology [address] [place] [phone] Grady Machado MD MEDICATION REFILL 05/01/2025 11:50 AM CDT - 05/01/2025 11:59 PM CDT Hospital Encounter [facility] [address] [place] [phone] Anthony Salvador MD Discharge Disposition: Home or Self Care 05/01/2025 Travel 04/27/2025 Orders Only [facility] - Rheumatology [address] [place] [phone] Suni Stephens MD Rheumatoid arthritis involving multiple sites with positive rheumatoid factor (HCC); 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 therapy (HCC); Therapeutic drug monitoring 04/20/2025 Orders Only [facility] - Rheumatology [address] [place] [phone] Suni Stephens MD Rheumatoid arthritis involving multiple sites with positive rheumatoid factor (HCC); 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 therapy (HCC); Therapeutic drug monitoring 04/13/2025 Orders Only [facility] - Rheumatology [address] [place] [phone] Suni Stephens MD Rheumatoid arthritis involving multiple sites with positive rheumatoid factor (HCC); 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 therapy (HCC); Therapeutic drug monitoring 04/06/2025 Orders Only [facility] - Rheumatology [address] [place] [phone] Suni Stephens MD Rheumatoid arthritis involving multiple sites with positive rheumatoid factor (HCC); 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 therapy (HCC); Therapeutic drug monitoring 04/03/2025 11:50 AM CDT - 04/03/2025 11:59 PM CDT Hospital Encounter [facility] [address] [place] [address] Anthony Salvador MD Discharge Disposition: Home or Self Care 04/03/2025 Travel 03/30/2025 Orders Only [facility] - Rheumatology [address] [place] [phone] Suni Stephens MD Rheumatoid arthritis involving multiple sites with positive rheumatoid factor (HCC); Therapeutic drug monitoring; 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; 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 therapy (HCC) from Last 3 Months Immunizations Immunization Administration Dates Next Due FLU VACCINE TRI IIV3 SPLIT IM (FLUVIRIN) 015 MMR VACCINE 07/07/1991,10/22/1989 POLIO OPV 10/22/1989 TD (AGE 6-ADULT) 10/22/1989 TDAP, HISTORIC VACCINE 03/24/2022 Family History Medical History Relation Name Comments Hypertension Brother 1 Arthritis - Osteo Brother 5 Arthritis - Rheumatoid Father Hypertension Father Arthritis - Rheumatoid Maternal Grandmother Hypertension Mother Arthritis - Rheumatoid Paternal Aunt Arthritis - Rheumatoid Paternal Grandmother Arthritis - Rheumatoid Paternal Uncle Scleroderma Sister 2 Scleroderma Sister 3 Scleroderma Sister 8 Relation Name Status Comments Brother 1 Alive Brother 2 Alive Brother 3 Alive Brother 4 Alive Brother 5 Alive Daughter Alive Father Alive Maternal Grandfather Maternal Grandmother Mother Paternal Aunt Paternal Grandfather Paternal Grandmother Paternal Uncle Alive Sister 1 Alive Sister 2 Alive Sister 3 Alive Sister 4 Alive Sister 5 Alive Sister 6 Alive Sister 7 Alive Sister 8 Son 1 Son 2 Alive Social History Tobacco Use Types Packs/Day Years Used Date Smoking Tobacco: Never Smokeless Tobacco: Never Tobacco Cessation:Counseling Given: Not Answered Alcohol Use Standard Drinks/Week Comments No 0 [...] Sign Reading Time Taken Comments Blood Pressure 127/84 06/06/2025 10:11 AM CDT Pulse 72 06/06/2025 10:11 AM CDT Temperature 36.7 C (98.1 F) 05/29/2025 12:23 PM CDT Respiratory Rate 20 05/29/2025 12:23 PM CDT Oxygen Saturation 95% 06/06/2025 10:11 AM CDT Inhaled Oxygen Concentration - - Weight 99.8 kg (220 lb) 06/06/2025 10:11 AM CDT Height 170.2 cm (5' 7) 06/06/2025 10:11 AM CDT Body Mass Index 34.46 06/06/2025 10:11 AM CDT Plan of Treatment Upcoming Encounters Date Type Department Care Team (Late st Contact Info) Description 07/06/2025 1:00 PM CDT Hospital Encounter [facility] [address] [place] [address] Anthony Salvador MD [address] [facility] [place] [phone] 07/17/2025 2:30 PM CDT Procedure visit [facility] [address] [facility] [facility] [address] [place] [address] 07/17/2025 3:00 PM CDT Office Visit [facility] [address] [facility] [address] [place] [address] Gideon Hernandez MD [address] [place] [address] 07/17/2025 3:30 PM CDT Office Visit [facility] - Ophthalmology [address] [facility], [place] [phone] Harsha Inman, CONRAD [address] [place] [phone] 08/03/2025 1:00 PM [employer] Appointment [facility] [address] [place] [address] 08/08/2025 10:30 AM [employer] Office Visit [facility] - Rheumatology [address] [facility], [place] [phone] Grady Machado MD [address] [facility] [place] [address] Health Maintenance Due Date Last Done Comments COLON MONITORING 1979 COLONOSCOPY - COLON CA SCREENING 1979 CT COLONOGRAPHY - COLON CA SCREENING 1979 FIT - COLON CA SCREENING 1979 FLEX SIG - COLON CA SCREENING 1979 LIPID TESTING 1979 MAMMOGRAM 1979 HIV SCREENING 1994 HEPATITIS B VACCINE (1 of 3 - 19+ 3-dose series) 1998 PNEUMOCOCCAL VACCINE (1 of 2 - PCV) 1998 ZOSTER VACCINE (1 of 2) 1998 COVID-19 VACCINE (2 - Pfizer risk series) 10/29/2021 10/08/2021 INFLUENZA VACCINE (#1) 2025 07/23/2015 PAP with HPV 09/01/2027 09/01/2022 COLOGUARD (AGES 45-75) - COLON CA SCREENING 03/16/2028 03/16/2025, 03/12/2025 Colorectal Cancer Screening 03/16/2028 SCREENING FOR DIABETES 05/29/2028 , 05/01/2025, 04/03/2025, Additional history exists DTAP/TDAP/TD VACCINES (3 - Td or Tdap) 03/24/2032 03/24/2022, 10/22/1989 DEPRESSION SCREENING Completed 03/06/2025, 05/27/20 HEPATITIS C SCREENING Completed 03/21/2025 HIB VACCINE Aged Out No longer eligi ble based on patient's age to complete this topic HPV VACCINE Aged Out No longer eligi ble based on patient's age to complete this topic MENINGOCOCCAL (Group B) VACCINE SHARED DECISION-MAKING Aged Out No longer eligible based on patient's age to complete this topic MENINGOCOCCAL GROUPS A/C/Y/W VACCINE Aged Out No longer eligible based on patient's age to complete this topic Procedures Procedure Name Priority Date/Time Associated Diagnosis Comments COMPREHENSIVE METABOLIC PANEL Routine 05/29/2025 12:37 PM CDT Rheumatoid arthritis involving multiple sites with positive rheumatoid factor (HCC) 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 therapy (HCC) Therapeutic drug monitoring CBC W AUTO DIFFERENTIAL Routine 05/29/2025 12:37 PM CDT Rheumatoid arthritis involving multiple sites with positive rheumatoid factor (HCC) 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 therapy (HCC) Therapeutic drug monitoring COMPREHENSIVE METABOLIC PANEL Routine 05/01/2025 12:24 PM CDT Rheumatoid arthritis involving multiple sites with positive rheumatoid factor (HCC) 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 therapy (HCC) Therapeutic drug monitoring CBC W AUTO DIFFERENTIAL Routine 05/01/2025 12:24 PM CDT Rheumatoid arthritis involving multiple sites with positive rheumatoid factor (HCC) 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 therapy (HCC) Therapeutic drug monitoring COMPREHENSIVE METABOLIC PANEL Routine 04/03/2025 12:14 PM CDT Rheumatoid arthritis involving multiple sites with positive rheumatoid factor (HCC) 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 therapy (HCC) Therapeutic drug monitoring CBC W AUTO DIFFERENTIAL Routine 04/03/2025 12:14 PM CDT Rheumatoid arthritis involving multiple sites with positive rheumatoid factor (HCC) 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 therapy (HCC) Therapeutic drug monitoring HEPATITIS C ANTIBODY Routine 03/21/2025 12:12 PM CDT Rheumatoid arthritis involving multiple sites with positive rheumatoid factor (HCC) 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 therapy (HCC) Therapeutic drug monitoring alf current use of systemic steroids COLOGUARD (EXTERNAL RESULT ENTRY) 03/16/2025 PAP IG LB+HPV APTIMA Routine 09/01/2022 11:32 AM [employer] Abnormal uterine bleeding from Last 3 Months or Most Recently Relevant to Health Maintenance Results * (ABNORMAL) CBC WITH DIFFERENTIAL (05/29/2025 12:37 PM CDT) Only the most recent of3 resultswithin the time period is included. WBC 4.2 4.0 - 10.7 x10E9/L 05/29/2025 1:24 PM [facility] RBC Count 4.56 3.90 - 5.20 x10E12/L 05/29/2025 1:24 PM [facility] Hemoglobin 12.9 11.9 - 15.8 g/dL 05/29/2025 1:24 PM [facility] Hematocrit 39.1 34.8 - 46.1 % 05/29/2025 1:24 PM [facility] MCV 85.7 80.0 - 98.0 fL 05/29/2025 1:24 PM [facility] MCH 28.3 26.7 - 33.6 pg 05/29/2025 1:24 PM [facility] MCHC 33.0 31.7 - 36.3 g/dL 05/29/2025 1:24 PM [facility] RDW-CV 15.6(H) 11.3 - 14.8 % 05/29/2025 1:24 PM [facility] Platelet Count 309 150 - 420 x10E9/L 05/29/2025 1:24 PM [facility] MPV 11.4 7.8 - 11.4 fL 05/29/2025 1:24 PM [facility] Preliminary Absolute Neutrophil 2.23 1.60 - 7.50 x10E9/L 05/29/2025 1:24 PM [facility] Neutrophil % 53.5 41.0 - 74.0 % 05[facility] Lymphocyte % 34.9 17.0 - 47.0 % 05/29/2025 1:24 PM [facility] Monocyte % 9.3 3.0 - 11.0 % 05/29/2025 1:24 PM T [facility] Eosinophil % 1.9 0.0 - 7.0 % 05/29/2025 1:24 PM T [facility] Basophil % 0.2 0.0 - 1.6 % 05/29/2025 1:24 PM T [facility] Immature Granulocytes % 0.2 0.0 - 1.0 % 05/29/2025 1:24 PM T [facility] Neutrophil Absolute 2.23 1.60 - 7.50 x10E9/L 05/29/2025 1:24 PM T [facility] Lymphocyte Absolute 1.46 1.00 - 4.40 x10E9/L 05/29/2025 1:24 PM T [facility] Monocyte Absolute 0.39 0.15 - 1.00 x10E9/L 05/29/2025 1:24 PM [facility] Eosinophil Absolute 0.08 0.00 - 0.60 x10E9/L 05/29/2025 1:24 PM [facility] Basophil Absolute 0.01 0.00 - 0.13 x10E9/L 05/29/2025 1:24 PM [facility] Blood BLOOD SPECIMEN / Unknown Venipuncture / Unknown 05/29/2025 12:37 PM CDT 05/29/2025 1:01 PM CDT us Suni Stephens MD LAB - HEMATOLOGY ORDERAB LES Final Result [facility] [address] [place] [address], [facility] [phone] * (ABNORMAL) COMPREHENSIVE METABOLIC PANEL (05/29/2025 12:37 PM CDT) Only the most recent of3 resultswithin the time period is included. [facility] BUN 8 7 - 26 mg/dL 05/29/2025 1:39 PM [facility] Creatinine 0.75 0.56 - 0.96 mg/dL 05/29/2025 1:39 PM [facility] Sodium 139 136 - 145 mmol/L 05/29/2025 1:39 PM [facility] Potassium 3.6 3.5 - 4.5 mmol/L 05/29/2025 1:39 PM [facility] Chloride 112(H) 98 - 107 mmol/L 05/29/2025 1:39 PM [facility] CO2 18(L) 22 - 29 mmol/L 05/29/2025 1:39 PM [facility] Glucose 82 70 - 99 mg/dL 05/29/2025 1:39 PM [facility] Calcium 9.0 8.4 - 10.2 mg/dL 05/29/2025 1:39 PM [facility] Protein Total 7.5 6.0 - 8.3 g/dL 05/29/2025 1:39 PM [facility] Albumin 3.8 3.4 - 5.0 g/dL 05/29/2025 1:39 PM [facility] Bilirubin Total 0.4 0.2 - 1.2 mg/dL 05/29/2025 1:39 PM [facility] Alkaline Phosphatase 78 40 - 150 U/L 05/29/2025 1:39 PM [facility] ALT 21 5 - 55 U/L 05/29/2025 1:39 PM [facility] AST 22 5 - 34 U/L 05/29/2025 1:39 PM [facility] Anion Gap 9 6 - 16 05/29/2025 1:39 PM [facility] BUN/Creatinine Ratio 11 7 - 23 05/29/2025 1:39 PM [facility] Osmolality Calculated 285 275 - 295 mOsm/kg 05/29/2025 1:39 PM [facility] Albumin/Globulin Ratio 1.0(L) 1.1 - 2.3 05/29/2025 1:39 PM [facility] eGFR by CKD-EPI >90 >=90 mL/min/1.7 3 m2 05/29/2025 1:39 PM CDT [facility] Comment:Estimated Glomerular Filtration Rate (eGFR) calculated using the CKD-EPI Creatinine Equation (2020), per the [employer] and [place] [employer] recommendations. Blood BLOOD SPECIMEN / Unknown Venipuncture / Unknown 05/29/2025 12:37 PM CDT 05/29/2025 1:01 PM CDT Suni Stephens MD LAB - CHEMISTRY ORDERABL ES Final Result Performing Organization Address City/[facility]/ZIP Co de Phone Number [address] [address], [facility] [phone] * HEPATITIS C ANTIBODY (03/21/2025 12:12 PM CDT) Hepatitis C Antibody Non-react desiree Non-reac tive 03/21/2025 2:20 PM CDT [facility] Comment:Hepatitis C Antibody screen indicates no serologic evidence of past or current infection with Hepatitis C Virus. Patients with unexplained liver disease who are immunocompromised or suspected of having acute Hepatitis C infection may benefit from Nucleic Acid Test (ARELIS) for Hepatitis C Viral RNA to confirm Hepatitis C status. Blood BLOOD SPECIMEN / Unknown Lab Venipuncture / Unknown 03/21/2025 12:12 PM CDT 03/21/2025 1:30 PM CDT Suni Stephens MD LAB - CHEMISTRY ORDERABL ES Final Result Performing Organization Address [facility]/ZIP Co de Phone Number [address] [address], [place] [phone] * COLOGUARD (EXTERNAL RESULT ENTRY) (03/16/2025) 03/16/2025 Narrative 03/16/2025 Ordered by an unspecified provider. 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 PREDOMINANCE OF COCCOBACILLI CONSISTENT WITH SHIFT IN VAGINAL BINU IS PRESENT. Specimen Adequacy Comment 022 12:09 PM [employer]ENDER FARM WORKER [facility] ([facility]) Comment: Satisfactory for evaluation. Endocervical and/or squamous metaplastic cells (endocervical component) are present. Performed by Comment 09/08/2022 12:09 PM L[employer]ENDER FARM WORKER [facility]) Comment:Nicolás Greco totechnologist (ASCP) Comment . 09/08/2022 12:09 PM LAVENDER FARM WORKER [facility]) Note Comment 09/08/2022 12:09 PM LAVENDER FARM WORKER [facility]) Comment: The Pap smear is a screening test designed to aid in the detection of premalignant and malignant conditions of the uterine cervix. It is not a diagnostic procedure and should not be used as the sole means of detecting cervical cancer. Both false-positive and false-negative reports do occur. IGLBP CPT Code Automation Comment 09/08/2022 12:09 PM LAVENDER FARM WORKER [facility]) Comment: This liquid based ThinPrep(R) pap test was screened with the use of an image guided system. Human papillomavirus Aptima Negative Negative 09/08/2022 12:09 PM LAVENDER FARM WORKER [facility] ([facility]) Comment: This nucleic acid amplification test detects fourteen high-risk HPV types (16,18,31,33,35,39,45,51,52,56,58,59,66,68) without differentiation. 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
--- NOTE | 2025-06-29 17:42 | ED_ITS ---
HPI - Female Genitourinary General Chief complaint: Vaginal Bleeding Stated complaint: LIGHTHEAD,BLURRY VISION X5 DAY, HEAVY VAG BLEED Time Seen by Provider: 06/29/25 17:28 History of Present Illness HPI Narrative: Patient is a 45-year-old female who presents to the ER with vaginal bleeding x1 month. She reports she has also been experiencing blurry vision, tiredness, and weakness. Patient endorses lower abdominal pain associated with the vaginal bleeding. She reports her pain is intermittently sharp. Patient endorses a history of fibroids, rheumatoid arthritis, high blood pressure, and takes methotrexate/prednisone daily. She denies any urinary symptoms, recent fevers, chest pain or shortness of breath. Related Data Allergies Allergy/AdvReac Type Severity Reaction Status Date / Time ibuprofen Allergy Severe SWELLING Verified 06/29/25 15:58 Chocolate Allergy Severe ITCHING Uncoded 04/11/24 16:52 Review of Systems 2 Review of Systems: All systems reviewed & are unremarkable except as noted in HPI and below Exam 2 Narrative: GENERAL: Well appearing, well-nourished, non-toxic, in no acute distress. HEAD: Normocephalic, atraumatic. NECK: Supple. No adenopathy, no masses. RESPIRATORY: Airway patent, respirations nonlabored. Clear to auscultation bilaterally, no rales, rhonchi, wheezing. CARDIOVASCULAR: Regular rate and rhythm without murmurs, rubs, or gallops. Peripheral pulses 2+ and equal bilaterally. ABDOMINAL: Soft, generalized tenderness, nondistended, no hepatosplenomegaly. Normoactive BS. MUSCULOSKELETAL: Moves all extremities. Strength/ROM intact without gross deformities. SKIN: Warm, dry, normal color. No rashes. NEURO: A&O X3. Speech clear. Cranial nerves II-XII intact. No ataxic movements. PSYCHIATRIC: Appropriate mood and affect. Normal interaction. Course Vital Signs Vital signs: Vital Signs Temperature 36.8 C 06/29/25 15:59 Pulse Rate 69 06/29/25 15:59 Respiratory Rate 18 06/29/25 15:59 Blood Pressure 132/91 H 06/29/25 15:59 Pulse Oximetry 100 06/29/25 15:59 Oxygen Delivery Room Air 06/29/25 15:59 Temperature 36.8 C 06/29/25 15:59 Pulse Rate 77 06/29/25 22:22 Respiratory Rate 14 06/29/25 22:22 Blood Pressure 138/65 06/29/25 22:22 Pulse Oximetry 99 06/29/25 22:22 Oxygen Delivery Room Air 06/29/25 18:00 MDM - Female Genitourinary MDM Narrative Medical decision making narrative: Patient is a 45-year-old female who presents to the ER with vaginal bleeding x1 month. She reports she has also been experiencing blurry vision, tiredness, and weakness. Patient endorses lower abdominal pain associated with the vaginal bleeding. She reports her pain is intermittently sharp. Patient endorses a history of fibroids, rheumatoid arthritis, high blood pressure, and takes methotrexate/prednisone daily. She denies any urinary symptoms, recent fevers, chest pain or shortness of breath. Labs Ordered: CBC, CMP, TSH, UA, GC chlamydia, Trichomonas, PTT, INR Imaging Ordered: Ultrasound pelvis complete Medications Ordered: 1 L normal saline IV bolus, ceftriaxone Results: Patient's ultrasound indicates no acute findings. Unremarkable ovaries. Fibroid uterus. Diagnosis: Gonorrhea, urinary tract infection, uterine fibroid, abnormal vaginal bleeding Patient Education/Shared MDM: Results of lab work and imaging shared with patient. She will be given a dose of ceftriaxone 1 g here to treat her gonorrhea and UTI. Patient strongly advised to maintain hydration status upon discharge and follow-up with her OBGYN as soon as possible. She will be discharged home with a prescription for Bactrim. Strict return precautions provided. Patient verbalized understanding and is in agreement with plan. Vital signs stable at time of discharge. All questions answered. Differential Diagnosis Differential diagnosis: Likely urinary tract infection, trichomoniasis, dysmenorrhea and other (Gonorrhea, chlamydia, uterine fibroid) Lab Data Attestation: I reviewed the patient's lab results. 06/29/25 18:03 06/29/25 18:03 Labs: Lab Results 06/29/25 06/29/25 Range/Units 18:03 18:05 WBC 4.7 (4.5-10.0) K/mm3 RBC 4.53 (4.2-5.4) M/mm3 Hgb 12.3 (12.0-15.0) g/dL Hct 39.0 (37.0-47.0) % MCV 86.1 (80-100) fl MCH 27.2 (26-34) pg MCHC 31.5 L (32-36) g/dl RDW 16.8 H (11.5-14.5) % Plt Count 279 D (150-375) k/mm3 MPV 11.7 H (7.4-10.4) fl Immature Gran % (Auto) 0.0 (0-0.5) % Neut % (Auto) 54.7 (45.5-73.1) % Lymph % (Auto) 32.6 (18.3-44.2) % [place] % (Auto) 10.2 H (2.6-8.5) % Eos % (Auto) 2.1 (0-4.4) % Baso % (Auto) 0.4 (0.2-1.2) % Lymph # (Auto) 1.53 (0.9-3.2) K/mm3 [place] # (Auto) 0.5 (0.1-0.6) K/mm3 Eos # (Auto) 0.1 (0-0.3) K/mm3 Baso # (Auto) 0.0 (0.0-0.1) K/mm3 Abs Immat Gran (auto) 0.00 (0.00-0.031) K/mm3 Absolute Neuts (auto) 2.6 (1.3-6.7) K/mm3 Absolute Nucleated RBC 0.000 (0.0-0.012) K/mm3 Nucleated RBC % 0.0 (0.0-0.2) % PT 13.3 (11.1-14.7) Seconds INR 1.0 APTT 29.4 (22.3-36.8) Seconds Sodium 138 (137-145) mmol/L Potassium 3.9 (3.4-5.0) mmol/L Chloride 106 (98-107) mmol/L Carbon Dioxide 24 (22-30) mmol/L Anion Gap 8 (4-12) mmol/L BUN 10 (7-17) mg/dL Creatinine 0.80 (0.7-1.0) mg/dL Estim Creat Clear Calc 91 ml/min Estimated GFR > 60 (59 - ) Glucose 99 (65-110) mg/dL Calcium 8.8 (8.4-10.2) mg/dL Total Bilirubin 0.2 (0.2-1.3) mg/dL AST 26 (14-36) U/L ALT 16 (6-35) U/L Alkaline Phosphatase 82 (38-126) U/L Total Protein 8.2 (6.3-8.2) g/dL Albumin 4.1 (3.5-5.1) g/dL TSH (Reflex) 1.630 (0.465-4.68) uIU/mL Urine Color Yellow (Yellow) Urine Appearance Turbid H (Clear) Urine pH 5.5 (5.0-9.0) Ur Specific [place] 1.025 (1.001-1.035) Urine Protein 1+ H (Negative) mg/dL Urine Glucose (UA) Negative (Negative) mg/dL Urine Ketones Trace H (Negative) mg/dL Ur Blood (Man) 3+ H (Negative) Urine Nitrate Negative (Negative) Urine Bilirubin Negative (Negative) Urine Urobilinogen 1.0 (<2.0) mg/dL Leukocyte Esterase Rfl 1+ H (Negative) SHELLI/UL Urine RBC >100 H (0-2) /hpf Urine WBC 11-20 H (0-3) /hpf Ur Squamous Epith Cells Few (Few) /hpf Urine Bacteria 1+ H /hpf Urine Casts 0-2 POC Urine HCG, Qual Negative (Negative) C. trachomatis (PCR) Not detected (NOT DETECTE) N. gonorrhoeae (PCR) Detected A (NOT DETECTE) T. vaginalis (PCR) Not detected (NOT DETECTE) Imaging Data Attestation: I personally reviewed and interpreted this imaging study as follows: Radiologist's impression: Patient's ultrasound indicates no acute findings. Unremarkable ovaries. Fibroid uterus. Discharge Plan Discharge Clinical Impression: Vaginal bleeding, Gonorrhea, Urinary tract infection, Dysfunctional uterine bleeding Patient Disposition: Home Condition: Improved Instructions: Antibiotic Form, Dysmenorrhea (ED) Additional Instructions: Please return to the ER with any worsening symptoms. Follow-up with your OBGYN as soon as possible. Take all medications as prescribed, including regularly scheduled medications. Complete your full dose of antibiotics. Remember to drink lots of water. Patient Language: Faroese Prescriptions: New sulfamethoxazole-trimethoprim [Bactrim DS] 800-160 mg tablet 1 tablet PO Q12H 5 Days Qty: 10 0RF No Action medroxyprogesterone [Provera] 10 mg tablet 10 mg PO DAILY Qty: 9 0RF Magic Mouthwash (Dr. Galeano) 120 mL suspension 5 ml PO TID Qty: 120 0RF Rx Instructions: diphenhydramine 12.5 mg/5 mL oral elixir 40 mL; Lidocaine Viscous 2 % mucosal solution 40 mL; Maalox 200 mg-200 mg-20 mg/5 mL oral suspension 40 mL; Per 120 mL hydrocodone-acetaminophen 5-325 mg tablet 1 tablet PO Q6H PRN (Reason: pain) Qty: 6 0RF Follow-up/Referrals: Mehul,ONESIMO Dave [Primary Care Provider, Family Practice] Stand Alone Forms: Work/School Release IP Time of Disposition: 22:01
[2025-06-29] MEDS: SODIUM CHLORIDE 0.9% IV 1,000 ML 999 ML IV CONT (17:55)
[2025-06-29 18:00] VITALS: BP 136/87; PULSE 65; RESP 20; O2SAT 100
[2025-06-29 18:02] VITALS: BP 136/87; O2SAT 100
[2025-06-29 18:03] VITALS: O2SAT 100
[2025-06-29 18:08] LABS: BEDSIDEPREGUCG Negative (Negative)
[2025-06-29 18:17] LABS: Add Urine Microscopic? YES; Appearance Urine Turbid (Clear); Glucose Urine UA Negative (Negative); Leukocyte Esterase Ur 1+ LEU/UL (Negative); Nitrate Urine Negative (Negative); Non Pathogenic Casts 0-2; Specific Grav Ur 1.025 (1.001-1.035)
[2025-06-29 18:18] LABS: Hematocrit 39.0 % (37.0-47.0); Hemoglobin 12.3 g/dL (12.0-15.0); Immature Granulocyte Percent A 0.0 % (0-0.5); Lymphocytes Absolute Auto 1.53 K/mm3 (0.9-3.2); Mean Corpuscular HGB Conc 31.5 g/dl (32-36); Mean Corpuscular Hemoglobin 27.2 pg (26-34); Mean Corpuscular Volume 86.1 fl (80-100); Nucleated Red Blood Cells Absolute Auto 0.000 K/mm3 (0.0-0.012); Nucleated Red Blood Cells Perc 0.0 % (0.0-0.2); Platelet Count Result 279 k/mm3 (150-375); Red Blood Count 4.53 M/mm3 (4.2-5.4); White Blood Count 4.7 K/mm3 (4.5-10.0)
[2025-06-29 18:25] LABS: Alanine Aminotransferase 16 U/L (6-35); Albumin Level 4.1 g/dL (3.5-5.1); Alkaline Phosphatase 82 U/L (38-126); Anion Gap 8 mmol/L (4-12); Aspartate Amino Transferase 26 U/L (14-36); Bilirubin,Total 0.2 mg/dL (0.2-1.3); Blood Urea Nitrogen 10 mg/dL (7-17); Calcium 8.8 mg/dL (8.4-10.2); Carbon Dioxide 24 mmol/L (22-30); Chloride 106 mmol/L (98-107); Estimated CRCL calculation 91 ml/min; Estimated Glomerular Filt Rate > 60; Glucose 99 mg/dL (65-110); INR 1.0; Potassium 3.9 mmol/L (3.4-5.0); Prothrombin Time 13.3 Seconds (11.1-14.7); Sodium 138 mmol/L (137-145); Total Protein 8.2 g/dL (6.3-8.2)
[2025-06-29 18:26] LABS: Partial Thromboplastin Time 29.4 Seconds (22.3-36.8)
[2025-06-29 18:56] LABS: Thyroid Stimulating Hormone Reflex 1.630 uIU/mL (0.465-4.68)
[2025-06-29 19:47] VITALS: BP 134/68
[2025-06-29 20:41] LABS: Trichomonas Vag PCR NOT DETECTED (NOT DETECTE)
[2025-06-29] MEDS: cefTRIAXone 1 GM VIAL IM (22:06)
[2025-06-29] MEDS: LIDOCAINE 1% LOCAL INJ 10 ML VIAL (22:06)
[2025-06-29 22:22] VITALS: BP 138/65; PULSE 77; RESP 14; O2SAT 99
== END 2025-06-29 22:23 | disposition home or self-care (01) ==
PROVIDERS: Emergency Provider Registered Nurse; PCP Physician Assistant
DX: N93.8 Other specified abnormal uterine and vaginal bleeding (principal); N39.0 Urinary tract infection, site not specified; A54.9 Gonococcal infection, unspecified; I10 Essential (primary) hypertension; M06.9 Rheumatoid arthritis, unspecified; D25.9 Leiomyoma of uterus, unspecified; Z79.631 Long term (current) use of antimetabolite agent; Z79.890 Hormone replacement therapy
CPT/HCPCS: 36415; 76856; 80053; 81001; 81025; 84443; 85025; 85610; 85730; 87086; 87491; 87591; 87661; 96360; 96372; 99284; J0696; J2003; J7030